=== PATIENT | female | born 2005 ===

== ENCOUNTER 2023-11-19 14:08 | Outpatient (CLI) | payer OTHER, SELFPAY | END 2023-11-19 14:09 | disposition home or self-care (01) | LOC: NFLDREF 14:10 | PROVIDERS: PCP Family Medicine; Visit Provider Registered Nurse | DX: R10.2 Pelvic and perineal pain (principal) | CPT/HCPCS: 87086 ==

== ENCOUNTER 2023-11-27 12:33 | Day surgery (SDC) | payer OTHER, SELFPAY ==
[2023-11-27] VITALS (19 sets, daily range): BP systolic 98–129; BP diastolic 65–84; PULSE 58–85; RESP 14–16; TEMP 36–37.1; O2SAT 97–100; BMI 21.4
--- NOTE | 2023-11-27 13:13 | CRLHL7_ITS ---
For Patients: As a result of the Century Cures Act, medical imaging exams and procedure reports are released immediately into your electronic medical record. You may view this report before your referring provider. If you have questions, please contact your health care provider. INDICATION: Pelvic and perineal pain. TECHNIQUE: Ultrasound pelvis transabdominal and transvaginal for better assessment or to better visualize the endometrium. Real-time sonographic images with spectral and color Doppler imaging of the ovaries were obtained. COMPARISON: None. FINDINGS: Uterus: 8.1 x 4.6 x 5.1 cm. Normal echotexture of the myometrium. No masses. Endometrium: Transvaginal imaging was performed to better evaluate the endometrium. Endometrial thickness measures 9.6 mm. No sign of endometrial mass or fluid. Right ovary 4 x 2.9 x 3.4. Left ovary 7.2 x 4.9 x 5.1 centimeter. There is a left ovarian lesion occupies almost all of the ovary with a fluid-fluid level. Normal arterial and venous blood flow is demonstrated in both ovaries. Cul-de-sac: Moderate simple pelvic free fluid. IMPRESSION: There is a left hemorrhagic cyst versus an endometrioma (O-RADS 2). Consider repeat ultrasound in 2-3 months. Moderate pelvic free fluid, which may be physiologic. Ruptured cyst is also in the differential, but free fluid visualized in the pelvis appears simple. Normal uterus. Dictated by Idania Simental MD @ 11/27/2023 2:51:07 PM (Electronically Signed)
[2023-11-27 13:31] LABS: Ur HCG Qualitative* Negative (Negative)
[2023-11-27 13:35] LABS: Appearance Urine Slightly Cloudy (Clear); Bilirubin Urine Negative (Negative); Blood Urine Negative (Negative); Color Urine Yellow (Yellow); Glucose Urine Negative (Negative); Ketones Urine Negative (Negative); Leukocyte Esterase Urine Negative (Negative); Nitrite Urine Negative (Negative); Protein Urine Negative (Negative); Specific Gravity Urine 1.025 (1.000-1.030); Urobilinogen Urine 0.2 (0.2-1.0)
[2023-11-27 13:49] LABS: Chloride* 105 mmol/L (96-114); Potassium* 4.3 mmol/L (3.6-5.1); Sodium* 136 mmol/L (135-149)
[2023-11-27] MEDS: 0.9 % SODIUM CHLORIDE 1000 ml 1,000 ML IV (13:50)
[2023-11-27 13:52] LABS: Basophils Percent Auto 0.2 % (0.0-3.0); Creatinine* 0.8 mg/dL (0.5-1.5); Eosinophils Percent Auto 0.5 % (0.0-7.0); Est. Creatinine Clearance* 130.12; Estimated Glomerular Filt Rate 108 ml/min; Hematocrit 41.4 % (33.0-51.0); Hemoglobin* 13.9 gm/dL (12.0-16.0); Immature Granulocytes Pct Auto 0.1 %; Lymphocytes Percent Auto 18.5 % (20-44); Mean Corpuscular HGB Conc 34 gm/dL (32-36); Mean Corpuscular Hemoglobin 29 pg (26-34); Mean Corpuscular Volume 87 fL (80-100); Monocytes Percent Auto 6.7 % (0.0-11.0); Platelet Count* 304 K/uL (140-440); RDW Coefficient of Variation % 12.8 % (11.5-15.5); Red Blood Count 4.75 m/uL (4.00-5.20); White Blood Count* 11.23 K/uL (4.50-11.00)
[2023-11-27 13:53] LABS: Anion Gap 6 mEq/L (7-15); Blood Urea Nitrogen* 25 mg/dL (5-24); Calcium* 9.6 mg/dL (8.4-10.6); Carbon Dioxide* 25 mmol/L (20-32); Glucose* 123 mg/dL (60-115)
[2023-11-27 13:54] LABS: Bacteria Urine Many; Mucus Urine Few; RBC Urine 0-2 (0-2); Squamous Epithelial Cell Urine Many (None-Few); WBC Urine 0-2 (0-5)
[2023-11-27 13:55] LABS: Slide Review Reflex No
[2023-11-27] MEDS: KETOROLAC 30 MG/ML inj IVP ×2 (14:00→18:48)
--- NOTE | 2023-11-27 14:21 | ED_ITS ---
HPI - Abdominal Pain General Date Seen: 11/27/23 Chief Complaint: Abdominal Pain Stated Complaint: Severe abdominal pain Time Seen by Provider: 11/27/23 12:49 Source: patient Mode of arrival: ambulatory Limitations: no limitations History of Present Illness HPI narrative: Patient is a 18-year-old female presents here with lower abdominal pain, she has had episodes of this 3 times today, where the lower abdominal pain will come on for 5-10 minutes, causing her to hyperventilate be the worst pain she has ever had. She also feels hot when this occurs, and then will improve in basically go way or have all really low level of pain in between this. She is not taking any medications for this, she had 1 episode yesterday, and then 2 weeks ago she had a couple episodes on a Friday. She was seen by OBGYN, they did a vaginal examination, and nothing came about that. But she came in today, she almost everted to the [facility]. Because the pain was so intense. Here she has 3/10 pain, but nothing nearly like she had. She describes as crampy or twisting, no vaginal discharge no dysuria frequency, history of UTIs in the past but no history of STDs. She is in a monogamous relationship. And her partner is here seems very loving. She does not take medications MD elicited complaint: abdominal pain Related Data Home Medications ?Medication ?Instructions ?Recorded ?Confirmed No Known Home Medications 11/13/21 11/27/23 Allergies Allergy/AdvReac Type Severity Reaction Status Date / Time No Known Drug Allergies Allergy Verified 11/27/23 12:48 Review of Systems Status of ROS Reports: 10 or more systems reviewed and unremarkable except as noted in History and below [facility] Medical History Fracture of fibula alone ?S82.409A - Unspecified fracture of shaft of unspecified fibula, initial encounter for closed fracture (ICD-10) Surgical History Closed fibular fracture ?S82.409A - Unspecified fracture of shaft of unspecified fibula, initial encounter for closed fracture (ICD-10) Family History Father High blood pressure Social History Narrative: Single, about to start her freshman year in college. Nonsmoker, no alcohol use, no recreational drug use. No concerns with safety or abuse. Will be playing volleyball in college. Smoking Status: Never smoker Exam Narrative: Exam Narrative: Patient is seen in room 5 she is in no apparent distress, thin, pupils equal round reactive to light there is no scleral icterus redness or TMs are normal oropharynx is normal neck is supple full range of motion, chest is good air entry bilaterally no wheezing crackles noted heart sounds are normal her abdomen shows tenderness in the lower abdominal region I would describe as moderate. There is no peritoneal signs bowel sounds are normal, no over upper abdominal pain no organomegaly, no CVA tenderness she moves all extremities independently and well, Const: Vital Signs, click to edit/add: Vital Signs - 24 hr 11/27/23 12:49 Temperature 97.2 F L Pulse Rate [Pulse Oximeter] 64 Respiratory Rate 16 Blood Pressure [Ri ght Upper Arm] 124/84 Pulse Oximetry 99 Oxygen Delivery Me thod Room Air Documenting provider has reviewed patient's vital signs: yes Course Reevaluation(s) Time of Reevaluation #1: 15:07 Reevaluation #1: I went back in to talk to the patient, she does have left-sided cyst, with good blood flow, hemorrhagic 7 x 5 x 4 cm, her history is very concerning for intermittent torsion. I contacted the on-call OBGYN, Dr.Dohn Israel agreed with me and will come and see the patient here in the emergency room. Patient will be kept NPO, fortunately she is feeling a lot better after the Toradol. Vital Signs Vital signs: Initial Vital Signs Temperature 97.2 F L 11/27/23 12:49 Temperature Source Temporal Artery Scan 11/27/23 12:49 Pulse Rate 64 11/27/23 12:49 Respiratory Rate 16 11/27/23 12:49 Blood Pressure 124/84 11/27/23 12:49 Blood Pressure Mean 97 11/27/23 12:49 Blood Pressure Position Sitting 11/27/23 12:49 Pulse Oximetry 99 11/27/23 12:49 Oxygen Delivery Method Room Air 11/27/23 12:49 Vital Signs Temperature 97.2 F L 11/27/23 12:49 Pulse Rate 64 11/27/23 12:49 Respiratory Rate 16 11/27/23 12:49 Blood Pressure 124/84 11/27/23 12:49 Pulse Oximetry 99 11/27/23 12:49 Oxygen Delivery Method Room Air 11/27/23 12:49 Temperature 97.2 F L 11/27/23 12:49 Pulse Rate 64 11/27/23 12:49 Respiratory Rate 16 11/27/23 12:49 Blood Pressure 124/84 11/27/23 12:49 Pulse Oximetry 99 11/27/23 12:49 Oxygen Delivery Method Room Air 11/27/23 12:49 Medications Administered Medications: Discontinued Medications Generic Name Dose Route Start Last Admin Trade Name Freq PRN Reason Stop Dose Admin Sodium Chloride 1,000 mls @ 1,000 mls/hr 11/27/23 13:15 11/27/23 14:35 0.9 % Sodium Chloride 1000 Ml IV 11/27/23 14:14 Infused .Q1H EDGARD Infusion Ketorolac Tromethamine 30 mg 11/27/23 13:13 11/27/23 14:00 Ketorolac 30 Mg/Ml Inj IVP 11/27/23 13:14 30 mg ONCE ONE Administration MDM - Abdominal Pain MDM Narrative Medical decision making narrative: During the evaluation of this patient I considered multiple differential diagnosis including life-threatening differentials which are appendicitis, aortic aneurysm, mesenteric ischemia, bowel perforation, ectopic , volvulus and bowel obstruction, other differential diagnosis include but are not limited to inflammatory bowel disease, cholecystitis, pancreatitis, hepatitis, gastritis, GERD, diverticulitis, peptic ulcer disease, pyelonephritis/UTI, renal colic/stone, pelvic inflammatory disease, cervicitis, endometritis, intrauterine , dysfunctional uterine bleeding, ovarian cyst/torsion, spontaneous as well as other etiologies Medical Records Attestation: I reviewed the patient's medical records. Lab Data Attestation: I reviewed the patient's lab results. Lab results narrative: Lab results show no evidence of an acute problems, Labs: Lab Results 11/27/23 11/27/23 Range/Units 13:15 13:27 WBC 11.23 H (4.50-11.00) K/uL RBC 4.75 (4.00-5.20) m/uL Hgb 13.9 (12.0-16.0) gm/dL Hct 41.4 (33.0-51.0) % MCV 87 (80-100) fL MCH 29 (26-34) pg MCHC 34 (32-36) gm/dL RDW Coeff of Aj 12.8 (11.5-15.5) % Plt Count 304 (140-440) K/uL Neut % (Auto) 74.0 H (42.0-72.0) % Lymph % (Auto) 18.5 L (20-44) % Chaves % (Auto) 6.7 (0.0-11.0) % Eos % (Auto) 0.5 (0.0-7.0) % Baso % (Auto) 0.2 (0.0-3.0) % Neut # (Auto) 8.30 H (1.7-7.0) K/uL Lymph # (Auto) 2.10 (0.90-2.90) K/uL Chaves # (Auto) 0.80 (0.00-0.90) K/UL Eos # (Auto) 0.10 (0.00-0.50) K/uL Baso # (Auto) 0.00 (0.00-0.30) K/uL Abs Immat Gran (auto) 0.00 (0.00-0.30) K/uL Imm/Tot Granulo (auto) 0.1 % Sodium 136 (135-149) mmol/L Potassium 4.3 (3.6-5.1) mmol/L Chloride 105 (96-114) mmol/L Carbon Dioxide 25 (20-32) mmol/L Anion Gap 6 L (7-15) mEq/L BUN 25 H (5-24) mg/dL Creatinine 0.8 (0.5-1.5) mg/dL Estimated Creat Clear 130.12 Estimated GFR 108 ml/min Glucose 123 H (60-115) mg/dL Calcium 9.6 (8.4-10.6) mg/dL C-Reactive Protein < 0.5 L (0.5-1.0) mg/dL Urine Color Yellow (Yellow) Urine Appearance Slightly Cloudy A (Clear) Urine pH 6.0 (5.0-8.5) Ur Specific Elgin 1.025 (1.000-1.030) Urine Protein Negative (Negative) Urine Glucose (UA) Negative (Negative) Urine Ketones Negative (Negative) Urine Blood Negative (Negative) Urine Nitrite Negative (Negative) Urine Bilirubin Negative (Negative) Urine Urobilinogen 0.2 (0.2-1.0) Ur Leukocyte Esterase Negative (Negative) Urine RBC 0-2 (0-2) Urine WBC 0-2 (0-5) Ur Squamous Epith Cells Many A (None-Few) Urine Bacteria Many A (None) Urine Mucus Few A (None) Urine HCG, Qual Negative (Negative) C.trachomatis Ampl DNA NOT DETECTED (No Detected) N.gonorrhoeae Ampl DNA NOT DETECTED (No Detected) Imaging Data Pelvic ultrasound: Attestation: I have reviewed the pertinent imaging results. Radiologist's impression: Patient: RODY BATISTA Facility:?[facility] Patient ID:?[id number] Site Patient ID:?[id number]. Site :?[id number] Study:?US-Pelvis transvaginal-11/27/2023 2:11:48 PM Ordering Physician:Jose Knihgt Final Report: INDICATION: Pelvic and perineal pain. TECHNIQUE: Ultrasound pelvis transabdominal and transvaginal for better assessment or to better visualize the endometrium. Real-time sonographic images with spectral and color Doppler imaging of the ovaries were obtained. COMPARISON: None. FINDINGS: Uterus: 8.1 x 4.6 x 5.1 cm. Normal echotexture of the myometrium. No masses. Endometrium: Transvaginal imaging was performed to better evaluate the endometrium. Endometrial thickness measures 9.6 mm. No sign of endometrial mass or fluid. Right ovary 4 x 2.9 x 3.4. Left ovary 7.2 x 4.9 x 5.1 centimeter. There is a left ovarian lesion occupies almost all of the ovary with a fluid-fluid level. Normal arterial and venous blood flow is demonstrated in both ovaries. Cul-de-sac: Moderate simple pelvic free fluid. IMPRESSION: There is a left hemorrhagic cyst versus an endometrioma (O-RADS 2). Consider repeat ultrasound in 2-3 months. Moderate pelvic free fluid, which may be physiologic. Ruptured cyst is also in the differential, but free fluid visualized in the pelvis appears simple. Normal uterus. Dictated by Idania Simental MD @ 11/27/2023 2:51:07 PM (Electronic Signature) Discharge Plan Discharge Clinical Impression: Ovarian torsion, Mass of left ovary Patient Disposition: XFER to OR Condition: Stable Prescriptions: No Action No Known Home Medications Follow Up/Referrals: Judy Aguilar MD [Primary Care Provider] -
[2023-11-27 14:28] LABS: C Reactive Protein* < 0.5 mg/dL (0.5-1.0)
[2023-11-27 15:09] LABS: Chlamydia DNA Amplified* NOT DETECTED (No Detected); GC DNA Amplified* NOT DETECTED (No Detected)
--- NOTE | 2023-11-27 15:35 | PM.GYNCN1 ---
ARTIST'S REPRESENTATIVE - CN: HPI Data of Consult Time Seen by Provider: 15:35 Date Seen: 11/27/23 Patient: [facility] Patient Requesting Physician: Placido Farnsworth MD Primary Care Provider: Judy Aguilar MD Consult Narrative Reason for consult: abdominal pain Narrative: Juani Curtis is a 18 year old female who presented to the emergency room this morning after having 3 episodes of very severe left lower quadrant pain each episode lasting 15-45 minutes. She states the pain was so severe that she felt like her body was ?on fire? and was associated with significant nausea. No episode of emesis. She last ate at 10:00 a.m.. She had an ultrasound performed today which showed a 7.0 x 4.9 x 5.1 cm left adnexal cyst possibly hemorrhagic cyst versus endometrioma. I have significant concern for intermittent torsion of her ovary and recommended emergent laparoscopic ovarian cystectomy possible oophorectomy. Please see Separate note for complete details. cc:: CC: [facility] Medical History Fracture of fibula alone ?S82.409A - Unspecified fracture of shaft of unspecified fibula, initial encounter for closed fracture (ICD-10) Surgical History Closed fibular fracture ?S82.409A - Unspecified fracture of shaft of unspecified fibula, initial encounter for closed fracture (ICD-10) Family History Father High blood pressure Social History Narrative: Single, about to start her freshman year in college. Nonsmoker, no alcohol use, no recreational drug use. No concerns with safety or abuse. Will be playing volleyball in college. Smoking Status: Never smoker Meds Home Medications and Allergies Home Medications ?Medication ?Instructions ?Recorded ?Confirmed ?Type No Known Home Medications 11/13/21 11/27/23 History Allergies Allergy/AdvReac Type Severity Reaction Status Date / Time No Known Drug Allergies Allergy Verified 11/27/23 12:48 ARTIST'S REPRESENTATIVE - Exam Physical Exam: Vital signs: Temp Pulse Resp BP Pulse Ox O2 Del Method 97.2 F L 64 16 124/84 99 Room Air 11/27/23 12:49 11/27/23 12:49 11/27/23 12:49 11/27/23 12:49 11/27/23 12:49 11/27/23 12:49 Narrative: General: Pleasant, thin, woman in no acute distress. Vital signs: Included in her electronic medical record. Psychiatric: Alert and oriented x3 with normal speech pattern, eye contact and affect. Abdomen: Left lower quadrant tenderness to deep palpation with rebound no guarding. Normal bowel sounds throughout. No masses palpable Genitourinary: Deferred to the operating room Extremities: No pain, edema, cyanosis or clubbing. ARTIST'S REPRESENTATIVE - Results Labs Labs: Short CBC 11/27/23 Range/Units 13:27 WBC 11.23 H (4.50-11.00) K/uL Hgb 13.9 (12.0-16.0) gm/dL Hct 41.4 (33.0-51.0) % Plt Count 304 (140-440) K/uL BMP 11/27/23 13:27 Sodium 136 Potassium 4.3 Chloride 105 Carbon Dioxide 25 BUN 25 H Creatinine 0.8 Glucose 123 H Calcium 9.6 Urine 11/27/23 Range/Units 13:15 Urine Color Yellow (Yellow) Urine Appearance Slightly Cloudy A (Clear) Urine pH 6.0 (5.0-8.5) Ur Specific Orange 1.025 (1.000-1.030) Urine Protein Negative (Negative) Urine Glucose (UA) Negative (Negative) Assessment and Plan Assessment and plan (1) Mass of left ovary: Status: Acute (2) Ovarian torsion: Status: Acute Assessment and Plan: 1. Due to intermittent pain I a.m. concerned about intermittent ovarian torsion in this patient with an ovarian cyst measuring 5 x 7 cm. 2. Consent form was reviewed and signed for laparoscopic left ovarian cystectomy, possible left oophorectomy. All the patient's questions were answered. 3. The patient last ate at 10:00 a.m.
[2023-11-27] MEDS: BUPIVACAINE 0.5% 30 ML INJECTION (16:30)
--- NOTE | 2023-11-27 17:35 | P.PCN_ITS ---
Procedure Note Time Seen by Provider: 17:35 Date Seen: 11/27/23 Date of procedure: 11/27/23 Will [facility] bill your pro fee for this procedure?: Yes Procedure: Preoperative diagnosis: 18-year-old nulligravid woman with severe left lower quadrant pain and 7 x 5 cm ovarian cyst Postoperative diagnosis: Same. Procedure: Laparoscopic left ovarian cystectomy Anesthesia: General endotracheal Surgeon: Rachel Vila MD Automatic Bandsaw Tender: Not applicable EBL: 50 mL Urine output: 100 mL clear urine IVF: 900 ml Specimen: Left ovarian cyst wall to pathology. Findings: On exam under anesthesia: The uterus was retroverted, less than 8 week size, mobile, without masses or nodularity palpable. Adnexa were without mass or fullness bilaterally. The uterus sounded to 8 cm. On laparoscopy: The uterus, right tube and ovary were normal in appearance. The left ovary had a 5 x 7 cm endometrioma with endometriosis in the cul-de-sac the area where the cyst had been adherent to the pelvic sidewall. The left fallopian tube had clubbed fimbria and appeared scarred. Normal appendix, liver and gallbladder. Procedure: Juani was taken to the operating room where general anesthetic was found to be adequate. She was placed in the dorsal lithotomy position and an exam under anesthesia was performed with findings stated above. She was then prepped and draped in a normal sterile manner. A Iglesias catheter was then placed. A bivalve speculum was then placed in the vaginal canal to visualize the cervix. The anterior lip of the cervix was grasped with an a long Allis clamp. The cervix was dilated to Hegar 6. Uterus was sounded to 8 cm. A [employer] uterine manipulator was then placed. Attention was then turned to performing the laparoscopic portion of the procedure. All incisions were injected with 0.5% Marcaine prior to incision. A vertical 5 mm infraumbilical, incision, was made and a 5 mm trocar placed under direct visualization with the laparoscope. The abdomen was then insufflated with carbon dioxide gas to a pressure of 15 mm of mercury. To bilateral lower quadrant trocars were then placed under direct visualization. Both were placed approximately 3-4 finger breaths medial to the ischial crests. The right trocar was 5 mm the left trocar was 11 mm. A diagnostic laparoscopy was then performed with findings stated above. The left fallopian tube was grasped with a sliding grasper to tent the ovary up. Incision was made over the cyst and the cyst was cored out of the underlying ovary. The ovary was essentially splayed in half as the cyst was removed. The cyst was then cauterized using bipolar cautery with excellent hemostasis noted. Surgicel was then placed within the ovary and the 2 sides of the ovary wrapped around the Surgicel. Excellent hemostasis was noted. A Cornell-Ron fascial closure device was used to reapproximate the fascia in the left lower quadrant trocar site. All the trocars were then removed under direct visualization. The CO2 gas was allowed to escape the infraumbilical port prior to its removal. All incisions were reapproximated using 4-0 Monocryl in a running subcuticular manner. Exofin skin adhesive was then applied and adhesive dressings applied over each incision. The uterine manipulator and Iglesias catheter were removed. The patient tolerated this procedure well. Sponge, lap and instrument counts were correct x2 at the end of the procedure and the patient was taken to the recovery area in stable condition.
--- NOTE | 2023-11-27 17:40 | W.ANESCHARGE ---
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
[2023-11-27] MEDS: HYDROCODONE-ACETAMIN 5-325 MG 1 TAB PO (20:22)
[2023-11-27] MEDS: ONDANSETRON 2 MG/ML inj 4 MG IVP (21:31)
[2023-11-28 00:04] VITALS: BP 119/67; PULSE 75; RESP 18; TEMP 37.1; O2SAT 98
--- NOTE | 2023-11-28 04:43 | PC.NURSE ---
Patient tolerated crackers and juice. Given PRN Jean for pain rated ?5/10. Ambulated with gait belt and assist of one. Reported dizziness and nausea when first attempting to ambulate to bathroom. Patient was given PRN Zofran at that time. A few small clots approximately 1cm in size noted in hat after?urinating. Patient?s family brought in outside food and patient tolerated well. Patient attempted to walk again however she became a little nauseated after walking to her door. She reported feeling better when back in bed. Before discharging there was a scant amount of blood noted on pad. Rated pain 3/10 with rest and 7/10 with activity.?Patient declined to take PRN Jean before leaving for concern this caused her earlier nausea. Patient discharged at 0040. She was accompanied by her significant other. RN wheeled patient to ER doors.?
== END 2023-11-28 00:40 | disposition home or self-care (01) ==
LOC: ED 18:44 → SS 18:47 → MEDSURG 18:49
PROVIDERS: Emergency Provider Family Medicine; PCP Family Medicine; Visit Provider Obstetrics & Gynecology
PROC: (CPT 58662; principal; 2023-11-27 15:30)
DX: N83.292 Other ovarian cyst, left side (principal); R10.32 Left lower quadrant pain; N83.512 Torsion of left ovary and ovarian pedicle
CPT/HCPCS: 58662; 00840; 36415; 76830; 80048; 81001; 81025; 85025; 86140; 87086; 87491; 87591; 88307; 99140; 99284; 99285; A9270; J0330; J0665; J1100; J1170; J1885; J2250; J2405; J2704; J3010; J3490; J7030

== ENCOUNTER 2024-05-07 12:01 | Outpatient (CLI) | payer OTHER, SELFPAY | END 2024-05-07 12:02 | disposition home or self-care (01) | LOC: NFLDREF 12:03 | PROVIDERS: PCP Family Medicine; Visit Provider Obstetrics & Gynecology | DX: R30.0 Dysuria (principal); N89.8 Other specified noninflammatory disorders of vagina | CPT/HCPCS: 87086 ==

== ENCOUNTER 2024-05-07 14:26 | Outpatient (CLI) | payer OTHER, SELFPAY ==
--- NOTE | 2024-05-07 14:45 | CRLHL7_ITS ---
For Patients: As a result of the Century Cures Act, medical imaging exams and procedure reports are released immediately into your electronic medical record. You may view this report before your referring provider. If you have questions, please contact your health care provider. Indication: pelvic pain Technique: Real-time sonographic images of the pelvis were obtained transvaginally utilizing grayscale, color, and Doppler imaging. Comparison: Report 11/27/2023. Findings: Uterus: Appearance: Normal. Position: Retroflexed. Size: 7.7 x 4.2 x 5.3 cm. Endometrial stripe: 12 mm. Right ovary: Size: 4.2 x 3.2 x 3.4 cm. Appearance: 2.2 x 1.7 x 1.2 centimeter hypoechoic lesion. 2.4 x 2.0 x 2.2 centimeter simple cyst. Preserved blood flow. Left ovary: Size: 5.3 x 2.4 x 3.7 cm. Appearance: 1.6 x 1.3 x 1.0 centimeter echogenic lesion. 1.5 x 1.9 x 1.6 centimeter heterogeneously hypoechoic cystic lesion. Preserved blood flow. Free fluid: Trace free fluid in the posterior cul-de-sac. Impression: 1. 2.2 x 1.7 x 1.2 centimeter hypoechoic right ovarian lesion. 1.5 x 1.9 x 1.6 centimeter heterogeneously hypoechoic left ovarian cystic lesion. Nonspecific cystic ovarian lesions suggestive of but not classic for hemorrhagic cyst, endometrioma or dermoid should be evaluated with repeat ultrasound in 6-12 weeks. If unchanged, hemorrhagic cyst would be unlikely, and continued follow-up with ultrasound or pelvic MRI would be recommended. Surgical consultation could also be considered for lesions that remain uncharacterized, particularly in postmenopausal patients. Adapted from Consensus Recommendations, Radiol:2010;256:943-955. 2. 1.6 x 1.3 x 1.0 centimeter echogenic left ovarian lesion; this is favored to represent a dermoid cyst. Suspected ovarian dermoids should be followed with annual ultrasound to ensure stability, unless surgically removed. Adapted from Consensus Recommendations, Radiol:2010;256:[id number]. Dictated by Robbie Warren MD @ 05/08/2024 10:52:34 AM (Electronically Signed)
== END 2024-05-07 14:27 | disposition home or self-care (01) ==
LOC: US 14:26
PROVIDERS: PCP Family Medicine; Visit Provider Obstetrics & Gynecology
DX: R10.2 Pelvic and perineal pain (principal); D27.1 Benign neoplasm of left ovary
CPT/HCPCS: 76830; 93976

== ENCOUNTER 2024-07-23 09:17 | Outpatient (CLI) | payer OTHER, SELFPAY ==
--- NOTE | 2024-07-23 09:15 | CRLHL7_ITS ---
For Patients: As a result of the Century Cures Act, medical imaging exams and procedure reports are released immediately into your electronic medical record. You may view this report before your referring provider. If you have questions, please contact your health care provider. CLINICAL HISTORY: Follow-up left ovarian cyst Comparison ultrasound 05/07/2024 TECHNIQUE: Real time, collado scale images were acquired of the pelvis using a transabdominal and transvaginal approach. Color Doppler analysis was performed of the ovaries. FINDINGS: The uterus measures 8.4 x 4.7 x 6.1 centimeters endometrium measures 1.1 centimeters. Right ovary: 5.8 x 4.1 x 4.5 centimeters. Hypoechoic lesion in the right ovary measuring 1.9 x 1.5 x 1.2 centimeters probably not significantly changed given differences in measurement technique. Several cysts are seen in the right ovary as well 4.6 x 2.4 x 3.2 centimeters. Left ovary: Echogenic lesion measuring 1.3 x 0.9 x 0.9 centimeters persists probably not significantly changed given differences in measurement technique. Additional complex lesion with possible fluid density level measuring 1.6 x 1.5 x 1.5 centimeters. Complex cystic lesion in left ovary measuring 1.1 x 0.7 x 1.1 centimeters could be related to previous complex cyst that now has decreased in size. Small amount of fluid in the pelvis blood flow to both ovaries IMPRESSION: 1. Hypoechoic lesion in the right ovary probably not significantly changed. 2. In the left hyperechoic lesion ovary probably not significantly changed an additional complex lesion with fluid density level. An additional complex cystic lesion in left ovary that is decreased in size from the previous study. Nonspecific complex ovarian lesions bilaterally presence of an echogenic component on the left could be related to presence of a dermoid. Gynecology consultation recommended. Dictated by Joleen Guy MD @ 07/23/2024 3:01:06 PM (Electronically Signed)
== END 2024-07-23 09:18 | disposition home or self-care (01) ==
LOC: US 09:17
PROVIDERS: PCP Family Medicine; Visit Provider Obstetrics & Gynecology
DX: N83.202 Unspecified ovarian cyst, left side (principal); N83.201 Unspecified ovarian cyst, right side
CPT/HCPCS: 76830

== ENCOUNTER 2024-10-05 17:14 | Outpatient (CLI) | payer OTHER, SELFPAY ==
--- OUTSIDE RECORDS SUMMARY | 2024-10-05 17:17 | XMS_ITS | Clinical Summary ---
Author Organization [facility] Address [address] [place] [address] Care Team Providers Care Doll Maker Name Role Phone [facility] Primary Care Pr ovider Allergies No known active allergies Medications fluconazole (DIFLUCAN) 150 mg tabletIndication s:Vaginal candidiasis Take 1 tablet every 3 days for total of 3 doses. 3 Tablet 04/11/2023 Active Active Problems Problem Noted Date Diagnosed Date Closed fracture of left distal fibula 05/04/2021 Overview (09/14/2021): Added automatically from request for surgery [id number] Resolved Problems Problem Noted Date Diagnosed Date Resolved Date No active medical problems 08/23/2011 0 12/10/2022 Encounters Date Type Department Care Team Description 07/23/2024 Orders Only [facility] Scanner 1 scan: (1-Ord) [facility], PELVIC TRANSVAGINAL, 07/23/2024 from Last 3 Months Immunizations Immunization Administration Dates Next Due DTaP 04/11/2008,06/01/2004 [id number] (Pediarix) 01/08/2004,0509/2003,2003,05/07 HIB PRP-OMP (PedvaxHIB) 06/01/2004,03/14/2004, HPV 9 (Gardasil 9) 11/18/2018 Hepatitis A (Peds) 11/20/2015,04/11/2008 Inactivated Polio Vaccine 04/11/2008 Influenza A (H1N1), Live Intranasal 04/20/2009 Influenza, IIV3 (Age 6-35 mos) 03/02/2004 Influenza, IIV3 (Age >=3 years) 04/11/2008,02/16 Influenza,LAIV4 Live Intrana enzo (Flumist) 02/16/2009 MENINGOCOCCAL VACCINE 2 VIAL 2MO-55YO (MENVEO) 11/20/2015 MMR 04/11/2008,03/02/2004 Pneumococcal conj 7-Valent (Prevnar 7) 0 06/01/2004,01/04/2004,2003,05/04 Tdap 11/20/2015 Varicella Vaccine 04/11/2008,03/02/2004 Family History Medical History Relation Name Comments Other Mother gestational mary betes Relation Name Status Comments Father Alive Mother Alive Social History Tobacco Use Types Packs/Day Years Used Date Smoking Tobacco: Never Smokeless Tobacco: Never Tobacco Cessation:Counseling Given: Yes Comments:no passive smoke exposure Alcohol Use Standard Drinks/Week Comments Never 0 (1 standard drink = 0.6 oz pur e alcohol) PHQ-2 Answer Date Recorded PHQ-2 TOTAL SCORE 2 04/10/2023 Social Connections Answer Date Recorded Do you often feel lonely or isolated from those around you? 0 04/10/2023 Financial Resource Strain Answer Date R ecorded Difficulty of Paying Living Expenses 3 04/10/2023 Difficulty of Paying Living Expenses Not on file 04/10/2023 Food Insecurity Answer Date Recorded Do you worry your food will run out before you are able to buy more? 1 04/10/2023 Transportation Needs Answer Date Record ed Does lack of transportation keep you from medica l appointments? 1 04/10/2023 Does lack of transportation keep you from work, meetings or getting things that you need? 1 04/10/2023 Housing Stability Answer Date Recorded What is your housing situation today? 1 04/10/2023 Utilities Answer Date Recorded Do you have trouble paying f or utilities (for example, heat, electricity, water, phone)? 1 04/10/2023 Comments No Sex and Gender Information Value Date Recorded Sex Assigned at Not on file Legal Sex Female 5:51 AM DISCHARGE PLANNER Gender Identity Not on file Sexual Orientation Not on file Obstetrics History Para Term AB IAB SAB Ectopic Multiple Livin g Live Births 0 0 0 0 0 0 0 0 0 0 0 Last Filed Vital Signs Vital Sign Reading Time Taken Comments Blood Pressure 104/66 04/10/2023 8:24 AM DISCHARGE PLANNER Pulse 76 04/10/2023 8:24 AM DISCHARGE PLANNER Temperature 36.7 C (98.1 F) 12/10/2022 1:06 PM CDT Respiratory Rate 12 03/08/2022 4:13 PM DISCHARGE PLANNER Oxygen Saturation 98% 04/10/2023 8:24 AM DISCHARGE PLANNER Inhaled Oxygen Concentration - - Weight 72.6 kg (160 lb) 04/10/2023 8:24 AM DISCHARGE PLANNER Height 183 cm (6' 0.05) 04/10/2023 8:24 AM DISCHARGE PLANNER Body Mass Index 21.67 04/10/2023 8:24 AM DISCHARGE PLANNER Plan of Treatment Health Maintenance Due Date Last Done Comments HIV for age 15-65 2018 HPV series for age 9-26 (2 - 3-dose series) 12/16/2018 11/18/2018 COVID-19 vaccine series ( season) 2023 Pap test for age 21-65 2024 BMI (ht and wt on same day) for age 18+ 04/10/2024 04/10/2023, 03/08/2022, 09/14/2021 Chlamydia for age 16-24 04/10/2024 04/10/2023 Depression screening for age 12+ 04/11/2024 04/11/2023, 04/10/2023, 09/17/2021, Additional history exists Influenza Vaccine (Season Ended) 2024 02/16/2009, 04/11/2008, 02/16/2007, Additional history exists Tetanus booster 11/19/2025 11/20/2015 Hepatitis B series for 19+ Completed 01/07, 2003, 2003, Additional history exists Pneumococcal series for age 6-49 Aged Out 06/01/2004, 01/04/2004, 2003, Additional history exists No longer eligible based on patient's age to complete this topic Meningococcal series for age 11-21 Aged Out 11/20/2015 No longer eligible based on patient's age to complete this topic Tdap Completed 11/20/2015 Hepatitis C screening for age 18-79 Completed 09/14/2021 Procedures Procedure Name Priority Date/Time Associated Diagnosis Comments SCAN-ULTRASOUND REPORT 07/23/2024 12:00 AM CDT GC CHLAMYDIA TRACH PROBE Routine 04/10/2023 9:36 AM DISCHARGE PLANNER Dyspareunia in female ANTI HCV Routine 09/14/2021 11:34 AM CDT Need for hepatitis C screening test from Last 3 Months or Most Recently Relevant to Health Maintenance Results * SCAN-ULTRASOUND REPORT (07/23/2024 12:00 AM CDT) Anatomical Region Laterality Modality Other us Scanner OTHER Final Result * GC CHLAMYDIA TRACH PROBE (04/10/2023 9:36 AM DISCHARGE PLANNER) CHLAMYDIA PROBE Negative 7:32 PM DISCHARGE PLANNER [facility] N GONORRHOEAE PROBE Negative 04/10/2023 7:32 PM DISCHARGE PLANNER [facility] Other VAGINAL SWAB / Unknown Non-Blood / Unknown 04/10/2023 9:36 AM DISCHARGE PLANNER 04/10/2023 9:37 AM DISCHARGE PLANNER us Cecy BOYLE MICROBIOLOGY Final Resu lt [facility] [address] [place] [address], * ANTI HCV (09/14/2021 11:34 AM CDT) HEPATITIS C ANTIBODY Non-React ryan Non-React ryan 09/15/2021 10:44 AM CDT [facility] Comment:Antibodies to HCV no t detected; does not exclude the possibility of exposure to HCV. Blood BLOOD SPECIMEN / Unknown Venipuncture / Unknown 09/14/2021 11:34 AM CDT 09/14/2021 11:35 AM CDT us Mario Kern DO SEND OUTS Final Result [facility] [address] [place] [address], [place] from Last 3 Months or Most Recently Relevant to Health Maintenance Insurance [place] [id number] [address] [place] [id number] [place] [address] Care Teams Doll Maker Relationship Specialty Start Date End Date Clinic, [facility] [address] [place] [address] PCP - General 05/10/24
--- OUTSIDE RECORDS SUMMARY | 2024-10-05 17:17 | XMS_ITS | Clinical Summary ---
Author Organization [facility] Address [address], [place] [address] Care Team Providers Care Chronic Disease Epidemiologist Name Role Phone Clinician, Not Found MD Primary Care Provider Un available Source Comments You are receiving this document as you are listed as the primary care provider,follow-up provider, or the patient has been referred to you for consultation.This is in compliance with the Medicare and[facility] Cent[facility] EHR Incentive Program,which states Providers who transition their patient to another setting of careor provider of care or refers their patient to another provider of care shouldprovide summary care record for each transition of care or referral. [facility] Allergies No known active allergies Medications HYDROcodone-alberto taminophen (NORCO) 5-325 MG tabletIndicatio ns:Pain Take 1-2 Tablets by mouth every 6 hours as needed for Pain. Indications: Pain 10 Tablet 04/03/2022 Active Active Problems Problem Noted Date Diagnosed Date Mechanical complication due to implant Overview (02/05/2022): Added automatically from request for surgery [id number] Closed fracture of left distal fibula 05/04/2021 Overview (05/04/2021): Added automatically from request for surgery [id number] Social History Tobacco Use Types Packs/Day Years Used Date Smoking Tobacco: Never Smokeless Tobacco: Never Tobacco Cessation:Counseling Given: Not Answered Alcohol Use Standard Drinks/Week Comments Not Currently 0 (1 standard drink = 0.6 oz pur e alcohol) Comments No Sex and Gender Information Value Date Recorded Sex Assigned at Not on file Legal Sex Female 5:45 AM CDT Gender Identity Not on file Sexual Orientation Not on file Last Filed Vital Signs Vital Sign Reading Time Taken Comments Blood Pressure 112/58 04/03/2022 12:47 PM CLOTHES DRIER ASSEMBLER Pulse 82 04/03/2022 12:25 PM CLOTHES DRIER ASSEMBLER Temperature 36.6 C (97.9 F) 04/03/2022 11:43 AM CLOTHES DRIER ASSEMBLER Respiratory Rate 16 04/03/2022 12:47 PM CLOTHES DRIER ASSEMBLER Oxygen Saturation 99% 04/03/2022 12:47 PM CLOTHES DRIER ASSEMBLER Inhaled Oxygen Concentration - - Weight 77.1 kg (170 lb) 04/03/2022 8:37 AM CLOTHES DRIER ASSEMBLER Height 182.9 cm (6') 04/03/2022 8:37 AM CLOTHES DRIER ASSEMBLER Body Mass Index 23.06 04/03/2022 8:37 AM CLOTHES DRIER ASSEMBLER Plan of Treatment Health Maintenance Due Date Last Done Comments Cervical Cancer Screening Due 2003 Chlamydia 2003 Hep C Screening (Preventive Services) 2003 MenB Immunization Discussion 2003 HPV Vaccine (2 - 3-dose series) 12/16/2018 11/18/2018 HIV Screening (Preventive Services) 2019 Adult Preventive Visit 2021 HepB Vaccine (1) 2022 COVID-19 Vaccine ( season) 2023 Influenza Vaccine (Season Ended) 2024 02/16/2009, 02/16/2009, 04/11/2008, Additional history exists DTaP/Tdap/Td Vaccine (7 - Tdap) 11/19/2025 11/20/2015, 04/11/2008, 06/01/2004, Additional history exists Zoster/Shingles Vaccine (1 of 2) 2053 Hib Vaccine Completed 06/01/2004, 04/2003, 2003 Pneumococcal Vaccine Aged Out 06/01/2004, 01/04/2004, 2003, Additional history exists No longer eligible based on patient's age to complete this topic IPV (Polio) Vaccine Completed 04/11/2008, 01/08/2004, 2003, Additional history exists HepA Vaccine Completed 11/20/2015, 04/11/2008 MCV4 Vaccine Aged Out 11/20/2015 No longer eligi ble based on patient's age to complete this topic Medical Devices Implanted Type Area Professor Of Rhetoric Device Identifier Shelf Expiration Date Model / Serial / Lot Scr Alexander 4.0x50 Lng-Thrd - [id number] Implanted:Qty: 1 on 05/09/2021 by Bienvenido Sawant DPM at [facility] DEVICE Left: ANKLE [employer] S[employer] - Trauma 207.750 / 000 / 000 Scr Alexander 4.0x40 Lng-Thrd - [id number] Implanted:Qty: 1 on 05/09/2021 by Bienvenido Sawant DPM at [facility] DEVICE Left: [employer] - Trauma 207.740 / 000 / 000 Insurance [address] [place] [id number] FULLY INSURED FULLY INSURED FULLY INSURED Advance Directives * Full Code (Latest Code Status on File) Date Activated Date Inactivated Comments 04/03/2022 8:37 AM 04/03/2022 3:16 PM * Full Code Date Activated Date Inactivated Comments 05/09/2021 8:17 AM 05/09/2021 1:33 PM Care Teams Chronic Disease Epidemiologist Relationship Specialty Start Date End Date Clinician, Not Found, [place] [address] PCP - General 11/02/21
--- NOTE | 2024-10-05 17:30 | CRLHL7_ITS ---
For Patients: As a result of the Century Cures Act, medical imaging exams and procedure reports are released immediately into your electronic medical record. You may view this report before your referring provider. If you have questions, please contact your health care provider. INDICATION: History of left ovarian mucinous cystadenoma COMPARISON: 07/23/2024 TECHNIQUE: 2D collado-scale and color Doppler images were acquired of the pelvis using a transabdominal and transvaginal approach. Transvaginal imaging performed to better visualize the endometrial stripe and ovaries. FINDINGS: Sonographic images demonstrate a normal size and smooth outer contour of the uterus. Uterus measures 8.6 cm in length by 4.5 cm in AP diameter by 5.8 cm in transverse dimension. The myometrium has a normal uniform echotexture. The endometrial lining appears normal and measures 12 mm in composite thickness. The right ovary measures 6.5 x 4.1 x 4.1 cm in size and the left ovary measures 4.8 x 2.3 x 3.0 cm. The ovaries demonstrate normal arterial and venous blood flow on color Doppler analysis. There are no suspicious fluid collections within the cul-de-sac. Complex right ovarian cyst with a fluid fluid level measures 3.4 x 3.5 x 3.3 cm. Mild pelvic free fluid. IMPRESSION: Hemorrhagic right ovarian cyst measures 3.5 cm. Normal left ovary. Dictated by Vinny Us MD @ 10/06/2024 9:46:27 AM (Electronically Signed)
--- OUTSIDE RECORDS SUMMARY | 2024-10-06 01:03 | XMS_ITS | Clinical Summary ---
Author Organization [facility] Address [address] [address] Care Team Providers Care Banquet Server On Call Name Role Phone Clinician, Not Found MD Primary Care Provider Un available Source Comments You are receiving this document as you are listed as the primary care provider,follow-up provider, or the patient has been referred to you for consultation.This is in compliance with the Medicare and[facility] Hospital[facility] EHR Incentive Program,which states Providers who transition their patient to another setting of careor provider of care or refers their patient to another provider of care shouldprovide summary care record for each transition of care or referral. [facility] Allergies No known active allergies Medications HYDROcodone-alberto taminophen (NORCO) 5-325 MG tabletIndicatio ns:Pain Take 1-2 Tablets by mouth every 6 hours as needed for Pain. Indications: Pain 10 Tablet 04/03/2022 Active Active Problems Problem Noted Date Diagnosed Date Mechanical complication due to implant Overview (02/05/2022): Added automatically from request for surgery [id number] Closed fracture of left distal fibula 05/04/2021 Overview (05/04/2021): Added automatically from request for surgery [id number] Social History Tobacco Use Types Packs/Day Years [...] Comments Blood Pressure 112/58 04/03/2022 12:47 PM SPRAY GUN REPAIRER Pulse 82 04/03/2022 12:25 PM SPRAY GUN REPAIRER Temperature 36.6 C (97.9 F) 04/03/2022 11:43 AM SPRAY GUN REPAIRER Respiratory Rate 16 04/03/2022 12:47 PM SPRAY GUN REPAIRER Oxygen Saturation 99% 04/03/2022 12:47 PM SPRAY GUN REPAIRER Inhaled Oxygen Concentration - - Weight 77.1 kg (170 lb) 04/03/2022 8:37 AM SPRAY GUN REPAIRER Height 182.9 cm (6') 04/03/2022 8:37 AM SPRAY GUN REPAIRER Body Mass Index 23.06 04/03/2022 8:37 AM SPRAY GUN REPAIRER Plan of Treatment Health Maintenance Due Date [...] this topic Medical Devices Implanted Type Area Driver Trainer Device Identifier Shelf Expiration Date Model / Serial / Lot Scr Alexander 4.0x50 Lng-Thrd - [id number] Implanted:Qty: 1 on 05/09/2021 by Bienvenido Sawant DPM at [facility] DEVICE Left: ANKLE [employer] S[employer] - Trauma 207.750 / 000 / 000 Scr Alexander 4.0x40 Lng-Thrd - [id number] Implanted:Qty: 1 on 05/09/2021 by Bienvenido Sawant DPM at [facility] DEVICE Left: AN[employer]LE [employer] - Trauma 207.740 / 000 / 000 Insurance [id number] [place] [id number] FULLY INSURED FULLY INSURED FULLY INSURED Advance Directives * Full Code (Latest Code Status on File) Date Activated Date Inactivated Comments 04/03/2022 8:37 AM 04/03/2022 3:16 PM * Full Code Date Activated Date Inactivated Comments 05/09/2021 8:17 AM 05/09/2021 1:33 PM Care Teams Banquet Server On Call Relationship Specialty Start Date End Date Clinician, Not Found, [place] [address] PCP - General 11/02/21
--- OUTSIDE RECORDS SUMMARY | 2024-10-06 01:03 | XMS_ITS | Clinical Summary ---
Author Organization [facility] Address [address] [place] [address] Care Team Providers Care Sports Broadcaster Name Role Phone [facility] Primary Care Pr ovider Allergies No known active allergies Medications fluconazole (DIFLUCAN) 150 mg tabletIndication s:Vaginal candidiasis Take 1 tablet every 3 days for total of 3 doses. 3 Tablet 04/11/2023 Active Active Problems Problem Noted Date Diagnosed Date Closed fracture of left distal fibula 05/04/2021 Overview (09/14/2021): Added automatically from request for surgery [id number] Resolved Problems Problem Noted Date Diagnosed Date Resolved Date No active medical problems 08/23/2011 0 12/10/2022 Encounters Date Type Department Care Team Description 07/23/2024 Orders Only [facility] Scanner 1 scan: (1-Ord) [facility], PELVIC TRANSVAGINAL, 07/23/2024 from Last 3 Months Immunizations Immunization Administration Dates Next Due DTaP 04/11/2008,06/01/2004 [id number] (Pediarix) 01/08/2004,0509/2003,2003,05/07 HIB PRP-OMP (PedvaxHIB) 06/01/2004,03/14/2004, HPV [...] on file Legal Sex Female 5:51 AM [employer] Gender Identity Not on file Sexual Orientation Not on file Obstetrics History Para Term AB IAB SAB Ectopic Multiple Livin g Live Births 0 0 0 0 0 0 0 0 0 0 0 Last Filed Vital Signs Vital Sign Reading Time Taken Comments Blood Pressure 104/66 04/10/2023 8:24 AM NCAA COMPLIANCE INTERNSHIP Pulse 76 04/10/2023 8:24 AM [employer] INTER[employer] Temperature 36.7 C (98.1 F) 12/10/2022 1:06 PM CDT Respiratory Rate 12 03/08/2022 4:13 PM [employer] Oxygen Saturation 98% 04/10/2023 8:24 AM [employer] Inhaled Oxygen Concentration - - Weight 72.6 kg (160 lb) 04/10/2023 8:24 AM [employer] Height 183 cm (6' 0.05) 04/10/2023 8:24 AM [employer]ANCE INTERNSHIP Body Mass Index 21.67 04/10/2023 8:24 AM [employer] Plan of Treatment Health Maintenance Due Date [...] CHLAMYDIA TRACH PROBE Routine 04/10/2023 9:36 AM [employer] INTERNS[employer]IP Dyspareunia in female ANTI HCV Routine 09/14/2021 11:34 AM CDT Need for hepatitis C screening test from Last 3 Months or Most Recently Relevant to Health Maintenance Results * SCAN-ULTRASOUND REPORT (07/23/2024 12:00 AM CDT) Anatomical Region Laterality Modality Other us Scanner OTHER Final Result * GC CHLAMYDIA TRACH PROBE (04/10/2023 9:36 AM [employer]) CHLAMYDIA PROBE Negative 7:32 PM [employer] [facility] N GONORRHOEAE PROBE Negative 04/10/2023 7:32 PM [employer] [facility] Other VAGINAL SWAB / Unknown Non-Blood / Unknown 04/10/2023 9:36 AM [employer] 04/10/2023 9:37 AM [employer] us Cecy BOYLE MICROBIOLOGY Final Resu lt [facility] [address] [place] [address], * ANTI HCV (09/14/2021 11:34 AM CDT) HEPATITIS C ANTIBODY Non-React ryan Non-React ryan 09/15/2021 10:44 AM CDT [facility] Comment:Antibodies to HCV no t detected; does not exclude the possibility of exposure to HCV. Blood BLOOD SPECIMEN / Unknown Venipuncture / Unknown 09/14/2021 11:34 AM CDT 09/14/2021 11:35 AM CDT us Mario Kern DO SEND OUTS Final Result [facility] [address] [place] [address], [place] from Last 3 Months or Most Recently Relevant to Health Maintenance Insurance [place] [id number] [place] [id number] [place] [id number] Care Teams Sports Broadcaster Relationship Specialty Start Date End Date Clinic, [facility] [address] [place] [address] PCP - General 05/10/24
== END 2024-10-05 17:15 | disposition home or self-care (01) ==
PROVIDERS: PCP Family Medicine; Visit Provider Obstetrics & Gynecology
DX: N94.9 Unspecified condition associated with female genital organs and menstrual cycle (principal); N83.201 Unspecified ovarian cyst, right side
CPT/HCPCS: 76830; 76856

== ENCOUNTER 2024-11-11 12:45 | Outpatient (CLI) | payer OTHER, SELFPAY ==
--- NOTE | 2024-11-11 13:00 | CRLHL7_ITS ---
For Patients: As a result of the Century Cures Act, medical imaging exams and procedure reports are released immediately into your electronic medical record. You may view this report before your referring provider. If you have questions, please contact your health care provider. OB ULTRASOUND LESS THAN 14 WEEKS, 11/11/2024 CLINICAL HISTORY: Vaginal bleeding. TECHNIQUE: Real time collado scale imaging of the fetus was performed. Transvaginal imaging performed. COMPARISON: 11/11/2024 FINDINGS: Imaging: Transvaginal. Right Ovary: 5.1 x 3.2 x 3.6 cm Left Ovary: 3.1 x 2.1 x 2.0 cm CL? IMPRESSION: 1. Intrauterine gestational sac is present containing a pole. The pole measures 5 weeks 5 days. Visualized motion is noted, although a distinct heart rate measurement was not able to be obtained. Follow-up in two weeks recommended. 2. Similar hypoechoic area within the right ovary which measures 2.7 cm. No internal vascularity is present. This may represent an endometrioma. 3. Collapsing corpus luteal cyst left ovary measures 1.8 cm. Vinny Us M.D. Diagnostic Radiologist [email or web address] Transcribed: 9:57 am DW/Dictated by: Vinny Us MD @ 11/14/2024 9:11:00 PM (Electronically Signed)
== END 2024-11-11 12:46 | disposition home or self-care (01) ==
LOC: US 12:46
PROVIDERS: PCP Family Medicine; Visit Provider Physician Assistant
DX: O20.9 Hemorrhage in early pregnancy, unspecified (principal); O34.81 Maternal care for other abnormalities of pelvic organs, first trimester; N83.12 Corpus luteum cyst of left ovary; Z3A.01 Less than 8 weeks gestation of pregnancy
CPT/HCPCS: 76817

== ENCOUNTER 2024-11-13 02:18 | Emergency (ER) | payer OTHER, SELFPAY ==
--- OUTSIDE RECORDS SUMMARY | 2024-11-13 02:20 | XMS_ITS | Clinical Summary ---
Author Organization [facility] Address [address] [place] [id number] Care Team Providers Care Success Coach Name Role Phone Clinic, [facility] Primary Care Pr ovider Allergies No known active allergies Medications fluconazole (DIFLUCAN) 150 mg tabletIndication s:Vaginal candidiasis Take 1 tablet every 3 days for total of 3 doses. 3 Tablet 04/11/2023 Active Active Problems Problem Noted Date Diagnosed Date Closed fracture of left distal fibula 05/04/2021 Overview (09/14/2021): Added automatically from request for surgery [id number] Resolved Problems Problem Noted Date Diagnosed Date Resolved Date No active medical problems 08/23/2011 0 12/10/2022 Encounters Date Type Department Care Team Description 10/05/2024 Orders Only [facility] Scanner 1 scan: (1-Ord) [place], PELVIC TA/TV, 10/05/2024 from Last 3 Months Immunizations Immunization Administration Dates Next Due DTaP 04/11/2008,06/01/2004 [id number] (Pediarix) 01/08/2004,08/13,2003,05/07 HIB PRP-OMP (PedvaxHIB) 06/01/2004,03/14/2004, HPV 9 (Gardasil [...] on file Legal Sex Female 5:51 AM GRAVITY PROSPECTING OPERATOR HELPER Gender Identity Not on file Sexual Orientation Not on file Obstetrics History Para Term AB IAB SAB Ectopic Multiple Livin g Live Births 0 0 0 0 0 0 0 0 0 0 0 Last Filed Vital Signs Vital Sign Reading Time Taken Comments Blood Pressure 104/66 04/10/2023 8:24 AM GRAVITY PROSPECTING OPERATOR HELPER Pulse 76 04/10/2023 8:24 AM GRAVITY PROSPECTING OPERATOR HELPER Temperature 36.7 C (98.1 F) 12/10/2022 1:06 PM CDT Respiratory Rate 12 03/08/2022 4:13 PM GRAVITY PROSPECTING OPERATOR HELPER Oxygen Saturation 98% 04/10/2023 8:24 AM GRAVITY PROSPECTING OPERATOR HELPER Inhaled Oxygen Concentration - - Weight 72.6 kg (160 lb) 04/10/2023 8:24 AM GRAVITY PROSPECTING OPERATOR HELPER Height 183 cm (6' 0.05) 04/10/2023 8:24 AM GRAVITY PROSPECTING OPERATOR HELPER Body Mass Index 21.67 04/10/2023 8:24 AM GRAVITY PROSPECTING OPERATOR HELPER Plan of Treatment Health Maintenance Due Date [...] 04/10/2023, 09/17/2021, Additional history exists Influenza Vaccine (#1) 2024 9, 04/11/2008, 02/16/2007, Additional history exists Tetanus booster [...] on patient's age to complete this topic Hepatitis C screening for age 18-79 Completed 09/14/2021 Procedures Procedure Name Priority Date/Time Associated Diagnosis Comments SCAN-ULTRASOUND REPORT 10/05/2024 12:00 AM CDT GC CHLAMYDIA TRACH PROBE Routine 04/10/2023 9:36 AM GRAVITY PROSPECTING OPERATOR HELPER Dyspareunia in female ANTI HCV Routine 09/14/2021 11:34 AM CDT Need for hepatitis C screening test from Last 3 Months or Most Recently Relevant to Health Maintenance Results * SCAN-ULTRASOUND REPORT (10/05/2024 12:00 AM CDT) Anatomical Region Laterality Modality Other us Scanner OTHER Final Result * GC CHLAMYDIA TRACH PROBE (04/10/2023 9:36 AM GRAVITY PROSPECTING OPERATOR HELPER) CHLAMYDIA PROBE Negative 7:32 PM GRAVITY PROSPECTING OPERATOR HELPER [facility] N GONORRHOEAE PROBE Negative 04/10/2023 7:32 PM GRAVITY PROSPECTING OPERATOR HELPER [facility] Other VAGINAL SWAB / Unknown Non-Blood / Unknown 04/10/2023 9:36 AM GRAVITY PROSPECTING OPERATOR HELPER 04/10/2023 9:37 AM GRAVITY PROSPECTING OPERATOR HELPER us Cecy BOYLE MICROBIOLOGY Final [facility]u lt [facility] [address] [place] [address], * ANTI HCV (09/14/2021 11:34 AM CDT) HEPATITIS C ANTIBODY Non-React ryan Non-React ryan 09/15/2021 10:44 AM CDT [facility] Comment:Antibodies to HCV no t detected; does not exclude the possibility of exposure to HCV. Blood BLOOD SPECIMEN / Unknown Venipuncture / Unknown 09/14/2021 11:34 AM CDT 09/14/2021 11:35 AM CDT Mario Kern DO SEND OUTS Final Result [facility] [address] [place] [address], [place] from Last 3 Months or Most Recently Relevant [place] [address] [place] [address] [place] [id number] Care Teams Success Coach Relationship Specialty Start Date End Date Clinic, [facility] [address] [place] [address] PCP - General 05/10/24
--- OUTSIDE RECORDS SUMMARY | 2024-11-13 02:20 | XMS_ITS | Clinical Summary ---
Author Organization [facility] Address [address] [address] Care Team Providers Care Arabic Teacher Name Role Phone Clinician, Not Found MD Primary Care Provider Un available Source Comments You are receiving this document as you are listed as the primary care provider,follow-up provider, or the patient has been referred to you for consultation.This is in compliance with the Medicare and[facility] EHR Incentive Program,which states Providers who transition their patient to another setting of careor provider of care or refers their patient to another provider of care shouldprovide summary care record for each transition of care or referral. [facility] [employer] Allergies No known active allergies Medications HYDROcodone-alberto taminophen (NORCO) 5-325 MG tabletIndicatio ns:Pain Take 1-2 Tablets by mouth every 6 hours as needed for Pain. Indications: Pain 10 Tablet 04/03/2022 Active Active Problems Problem Noted Date Diagnosed Date Mechanical complication due to implant Overview (02/05/2022): Added automatically from request for surgery [id number] Closed fracture of left distal fibula 05/04/2021 Overview (05/04/2021): Added automatically from request for surgery [id number] Social History Tobacco Use Types Packs/Day Years [...] Comments Blood Pressure 112/58 04/03/2022 12:47 PM WORD PROCESSING SUPERVISOR Pulse 82 04/03/2022 12:25 PM WORD PROCESSING SUPERVISOR Temperature 36.6 C (97.9 F) 04/03/2022 11:43 AM WORD PROCESSING SUPERVISOR Respiratory Rate 16 04/03/2022 12:47 PM WORD PROCESSING SUPERVISOR Oxygen Saturation 99% 04/03/2022 12:47 PM WORD PROCESSING SUPERVISOR Inhaled Oxygen Concentration - - Weight 77.1 kg (170 lb) 04/03/2022 8:37 AM WORD PROCESSING SUPERVISOR Height 182.9 cm (6') 04/03/2022 8:37 AM WORD PROCESSING SUPERVISOR Body Mass Index 23.06 04/03/2022 8:37 AM WORD PROCESSING SUPERVISOR Plan of Treatment Health Maintenance Due Date Last Done Comments Cervical Cancer Screening Due 2003 Chlamydia 2003 Hep C Screening (Preventive Services) 2003 MenB Immunization Discussion 2003 HPV Vaccine (2 - 3-dose series) 12/16/2018 11/18/2018 HIV Screening (Preventive Services) 2019 Adult Preventive Visit 2021 HepB Vaccine (1) 2022 COVID-19 Vaccine ( season) 2023 Influenza Vaccine (#1) 2024 9, 02/16/2009, 04/11/2008, Additional history exists DTaP/Tdap/Td Vaccine [...] this topic Medical Devices Implanted Type Area Signals Officer Device Identifier Shelf Expiration Date Model / Serial / Lot Scr Alexander 4.0x50 Lng-Thrd - [id number] Implanted:Qty: 1 on 05/09/2021 by Bienvenido Sawant DPM at [facility] DEVICE Left: [employer] - Trauma 207.750 / 000 / 000 Scr Alexander 4.0x40 Lng-Thrd - [id number] Implanted:Qty: 1 on 05/09/2021 by Bienvenido Sawant DPM at [facility] DEVICE Left: [employer] - Trauma 207.740 / 000 / 000 Insurance [address] [place] [id number] FULLY INSURED FULLY INSURED FULLY INSURED Advance Directives * Full Code (Latest Code Status on File) Date Activated Date Inactivated Comments 04/03/2022 8:37 AM 04/03/2022 3:16 PM * Full Code Date Activated Date Inactivated Comments 05/09/2021 8:17 AM 05/09/2021 1:33 PM Care Teams Arabic Teacher Relationship Specialty Start Date End Date Clinician, Not Found, [place] [address] PCP - General 11/02/21
[2024-11-13 02:24] VITALS: BP 147/88; PULSE 108; RESP 18; TEMP 36.8; O2SAT 100; BMI 21.7
--- NOTE | 2024-11-13 02:39 | CRLHL7_ITS ---
For Patients: As a result of the Century Cures Act, medical imaging exams and procedure reports are released immediately into your electronic medical record. You may view this report before your referring provider. If you have questions, please contact your health care provider. INDICATION: Vaginal bleeding COMPARISON: 11/11/2024, 07/23/2024 TECHNIQUE: Transvaginal: Lozada-scale and color Doppler ultrasound of the uterus and ovaries from a transvaginal approach. Transvaginal ultrasound of the pelvis was performed to better visualize the genitourinary organs, such as the ovaries and/or endometrium. FINDINGS: Reported last menstrual period: 09/17/2024. Estimated gestational age: 8 weeks 1 day The uterus is retroverted and measures 8 x 5 x 6 cm. No uterine masses. The endometrial stripe measures 1.9 cm in double thickness. The endometrium is heterogeneous and very hypervascular. No intrauterine gestational sac. No identifiable embryo. The cervix not well seen due to uterine position The right ovary measures 5.1 x 3.2 x 3.6 cm. There is a homogeneously hypoechoic 2.7 x 2.3 x 2.7 centimeter lesion. No internal blood flow and there is through transmission. Appearance suggests either a hemorrhagic cyst or an endometrioma. Similar appearance seen previously. There is also a smaller simple cyst. No solid mass. Normal color Doppler flow. The left ovary measures 3.1 x 2.1 x 2.0 cm. There is a small likely corpus luteum cyst that measures 1.4 x 1.6 by 1.6 cm. Normal color Doppler flow. No free fluid. IMPRESSION: 1. First trimester loss. Previously seen intrauterine gestational sac is no longer present. The endometrium is heterogeneous and hypervascular. Correlate with time since bleeding to assess for the possibility of retained products of conception versus recent loss. 2. Again seen is a 2.7 centimeter right ovarian lesion that may be a hemorrhagic cyst or an endometrioma. Dictated by Alicia James MD @ 11/13/2024 4:26:08 AM (Electronically Signed)
--- NOTE | 2024-11-13 02:58 | ED.PREGNANCY ---
HPI - General Time Seen by Provider: 02:58 Date Seen: 11/13/24 Chief complaint: Vaginal Bleeding Stated complaint: 6wks , vaginal bleeding Time Seen by Provider: 11/13/24 02:39 Source: patient and family Mode of arrival: ambulatory History of Present Illness HPI Narrative: Juani is a previously healthy currently ~ 6 weeks who presents the emergency department for evaluation of vaginal bleeding. Patient reports her last menstrual period was 09/17/2024. Patient states that she has noticed some light brown spotting for the past 4 days. Patient had her 1st ultrasound 2 days ago on 11/11/2024 which demonstrated single live IUP measures 2 weeks < clinical dates, heart motion visualized but too small to accurately measure beats per minute. Patient reports last night around 5:00 p.m. she developed some bright red blood. Patient reports initially it was light however 9:00 p.m. started with heavy bright red vaginal bleeding along with clots. Patient reports soaking pads/diaper in changing it multiple times in the past 6 hours. Patient denies any weakness, dizziness, chest pain, shortness of breath, nausea, vomiting, abdominal pain. No other complaints. Related Data Allergies Allergy/AdvReac Type Severity Reaction Status Date / Time No Known Drug Allergies Allergy Verified 11/13/24 02:28 Review of Systems Narrative: Past medical history, past surgical history, medications, allergies, family history, and social history were reviewed with the patient. No additional pertinent items. A medically appropriate review of systems was performed with pertinent positives and negatives noted in HPI, all other systems negative. [facility] Medical History (Updated 11/13/24 @ 04:41 by Julia Pascual MD) Fracture of fibula alone ?S82.409A - Unspecified fracture of shaft of unspecified fibula, initial encounter for closed fracture (ICD-10) Surgical History (Updated 12/10/23 @ 13:23 by Rachel Vila MD) Status post laparoscopic surgery (11/27/23) ?Z98.890 - Other specified postprocedural states (ICD-10) Closed fibular fracture ?S82.409A - Unspecified fracture of shaft of unspecified fibula, initial encounter for closed fracture (ICD-10) Family History Father High blood pressure Social History (Updated 11/11/24 @ 16:09 by Rut Roberson PA-C) Narrative: Engaged. Nonsmoker No alcohol use What is your current living situation?: I presently have a place to live Problems where you live: no known problems In the past 12 months, utilities in danger of being shut off: no In past 12 months, lack of transportation kept you from medical appts, meetings, work, or getting things needed for daily living: no In the past 12 mos, have been you worried that your food would run out before you had money to buy more?: never true In the past 12 mos, the food you bought just didn't last and you didn't have money to buy more?: never true Smoking Status: Never smoker Do you use any of these nicotine containing products: None How often do you have a drink containing alcohol: never How often do you have six or more drinks on one occasion: Never AUDIT-C Alcohol total score: 0 Non-prescribed substance use: denies use How often does anyone, including family, friends and others, physically hurt you: never How often does anyone, including family, friends and others, insult or talk down to you: never How often does anyone, including family, friends and others, threaten you with harm: never How often does anyone, including family, friends and others, scream or curse at you: never service: No Exam Narrative: Exam Narrative: General: Afebrile, in distress HEENT: Normocephalic, atraumatic, conjunctiva normal. MMM Neck: non-tender, supple Cardio: regular rate. regular rhythm Resp: Normal work of breathing, no respiratory distress, lungs clear bilaterally, no wheezing, rhonchi, rales Chest/Back: no visual signs of trauma, no midline tenderness, no CVA tenderness Abdomen: soft, non distension, no tenderness, no peritoneal signs Neuro: alert and fully oriented. CN II-XII grossly intact. Grossly normal strength and sensation in all extremities. MSK: no deformities. Normal range of motion Integumentary/Skin: no rash visualized, normal color Psych: normal affect, normal behavior Const: Vital Signs, click to edit/add: Vital Signs - 24 hr 11/13/24 02:24 Temperature 98.2 F Pulse Rate [Pulse Oximeter] 108 H Respiratory Rate 18 Blood Pressure [Ri ght Upper Arm] 147/88 H Pulse Oximetry 100 Oxygen Delivery Me thod Room Air Course Vital Signs Vital signs: Initial Vital Signs Temperature 98.2 F 11/13/24 02:24 Temperature Source Temporal Artery Scan 11/13/24 02:24 Pulse Rate 108 H 11/13/24 02:24 Pulse Rhythm Regular 11/13/24 02:24 Respiratory Rate 18 11/13/24 02:24 Blood Pressure 147/88 H 11/13/24 02:24 Blood Pressure Mean 107 H 11/13/24 02:24 Blood Pressure Position Sitting 11/13/24 02:24 Pulse Oximetry 100 11/13/24 02:24 Oxygen Delivery Method Room Air 11/13/24 02:24 Vital Signs Temperature 98.2 F 11/13/24 02:24 Pulse Rate 108 H 11/13/24 02:24 Respiratory Rate 18 11/13/24 02:24 Blood Pressure 147/88 H 11/13/24 02:24 Pulse Oximetry 100 11/13/24 02:24 Oxygen Delivery Method Room Air 11/13/24 02:24 Temperature 98.2 F 11/13/24 02:24 Pulse Rate 108 H 11/13/24 02:24 Respiratory Rate 18 11/13/24 02:24 Blood Pressure 147/88 H 11/13/24 02:24 Pulse Oximetry 100 11/13/24 02:24 Oxygen Delivery Method Room Air 11/13/24 02:24 MDM - OB/Uterine Contractions MDM Narrative Medical decision making narrative: Juani is a previously healthy currently ~ 6 weeks who presents the emergency department for evaluation of vaginal bleeding. Upon arrival patient is nontoxic appearing, afebrile, in distress. Patient hypertensive upon arrival 147/88, tachycardic with heart rate 108, oxygen 100% on room air. Differential diagnosis includes but is not limited to IUP versus spontaneous/threatened versus subchorionic hemorrhage versus normal vaginal bleeding in among others. I reviewed comprehensive labs Which remarkable for white blood cell count of 7.7, hemoglobin 13.3, no acute metabolic or electrolyte abnormality, no transaminitis, hCG 81090. I personally reviewed and interpreted pelvic ultrasound which demonstrates 1st trimester loss, previously seen intrauterine gestational sac is no longer present. I discussed results with patient. Recommend close outpatient follow-up with OBGYN, strict bleeding precautions discussed. Return precautions discussed. Patient and significant other understand agrees the plan. Lab Data Labs: Lab Results 11/13/24 Range/Units 03:02 WBC 7.71 (4.50-11.00) K/uL RBC 4.36 (4.00-5.20) m/uL Hgb 13.3 (12.0-16.0) gm/dL Hct 39.3 (33.0-51.0) % MCV 90 (80-100) fL MCH 31 (26-34) pg MCHC 34 (32-36) gm/dL RDW Coeff of Aj 12.0 (11.5-15.5) % Plt Count 273 (140-440) K/uL Neut % (Auto) 63.8 (42.0-72.0) % Lymph % (Auto) 26.8 (20-44) % [place] % (Auto) 8.0 (0.0-11.0) % Eos % (Auto) 1.0 (0.0-7.0) % Baso % (Auto) 0.3 (0.0-3.0) % Neut # (Auto) 4.91 (1.7-7.0) K/uL Lymph # (Auto) 2.07 (0.90-2.90) K/uL [place] # (Auto) 0.60 (0.00-0.90) K/UL Eos # (Auto) 0.08 (0.00-0.50) K/uL Baso # (Auto) 0.02 (0.00-0.30) K/uL Abs Immat Gran (auto) 0.01 (0.00-0.30) K/uL Imm/Tot Granulo (auto) 0.1 % Sodium 137 (135-149) mmol/L Potassium 4.2 (3.6-5.1) mmol/L Chloride 105 (96-114) mmol/L Carbon Dioxide 25 (20-32) mmol/L Anion Gap 7 (7-15) mEq/L BUN 19 (5-24) mg/dL Creatinine 0.7 (0.5-1.5) mg/dL Estimated Creat Clear 145.65 Estimated GFR 126 ml/min Glucose 101 (60-115) mg/dL Calcium 9.4 (8.4-10.6) mg/dL Total Bilirubin 0.3 (0.1-1.5) mg/dL AST 22 (12-35) U/L ALT 10 (4-35) U/L Alkaline Phosphatase 44 (40-150) U/L Total Protein 7.0 (6.0-8.3) g/dL Albumin 4.4 (3.3-5.0) g/dL HCG, Quant 19229.00 mIU/mL Blood Type A Positive Discharge Plan Discharge Clinical Impression: Vaginal bleeding during , Incomplete Patient Disposition: Home, Self-Care Condition: Stable Additional Instructions: Please follow-up with your OBGYN in the next 2-3 days for further evaluation and follow-up. Please alternate taking Tylenol or ibuprofen as needed for abdominal pain/cramping. Please continue to monitor bleeding. Return to the emergency department if he develops persistent heavy bleeding which were soaking 3 thick pad/diaper every 30 minutes, or return if any worsening symptoms. It was a pleasure taking care of you today. We hope you feel better soon. Follow Up/Referrals: Judy Aguilar MD [Primary Care Provider, Family Practice] Stand Alone Forms: [employer] Info Instructions
[2024-11-13 03:08] LABS: Hematocrit 39.3 % (33.0-51.0); Hemoglobin* 13.3 gm/dL (12.0-16.0); Immature Granulocytes Abs Auto 0.01 K/uL (0.00-0.30); Immature Granulocytes Pct Auto 0.1 %; Lymphocytes Absolute Auto 2.07 K/uL (0.90-2.90); Mean Corpuscular HGB Conc 34 gm/dL (32-36); Mean Corpuscular Hemoglobin 31 pg (26-34); Mean Corpuscular Volume 90 fL (80-100); RDW Coefficient of Variation % 12.0 % (11.5-15.5); Red Blood Count 4.36 m/uL (4.00-5.20); White Blood Count* 7.71 K/uL (4.50-11.00)
[2024-11-13 03:09] LABS: Slide Review Reflex No
[2024-11-13 03:25] LABS: Albumin* 4.4 g/dL (3.3-5.0); Chloride* 105 mmol/L (96-114); Potassium* 4.2 mmol/L (3.6-5.1); Sodium* 137 mmol/L (135-149)
[2024-11-13 03:28] LABS: Alanine Aminotransferase* 10 U/L (4-35); Alkaline Phosphatase* 44 U/L (40-150); Anion Gap 7 mEq/L (7-15); Aspartate Amino Transferase* 22 U/L (12-35); Bilirubin Total* 0.3 mg/dL (0.1-1.5); Blood Urea Nitrogen* 19 mg/dL (5-24); Carbon Dioxide* 25 mmol/L (20-32); Creatinine* 0.7 mg/dL (0.5-1.5); Est. Creatinine Clearance* 145.65; Estimated Glomerular Filt Rate 126 ml/min; Total Protein* 7.0 g/dL (6.0-8.3)
[2024-11-13 03:29] LABS: Calcium* 9.4 mg/dL (8.4-10.6); Glucose* 101 mg/dL (60-115)
[2024-11-13 03:46] LABS: HCG Quantitative* 12057.00 mIU/mL
[2024-11-13 04:50] VITALS: BP 135/74; PULSE 95; RESP 18; TEMP 36.8; O2SAT 100
[2024-11-13 04:51] VITALS: BP 135/74; PULSE 95; RESP 18; TEMP 36.8
== END 2024-11-13 04:51 | disposition home or self-care (01) ==
PROVIDERS: Emergency Provider Emergency Medicine; PCP Family Medicine
DX: O03.4 Incomplete spontaneous abortion without complication (principal)
CPT/HCPCS: 36415; 76817; 80053; 84702; 85025; 86900; 86901; 99284; 99285

== ENCOUNTER 2024-11-17 14:07 | Outpatient (CLI) | payer OTHER, SELFPAY | END 2024-11-17 14:08 | disposition home or self-care (01) | LOC: NFLDREF 14:08 | PROVIDERS: PCP Family Medicine; Visit Provider Registered Nurse | DX: O03.4 Incomplete spontaneous abortion without complication (principal) | CPT/HCPCS: 84702 ==

== ENCOUNTER 2024-11-24 16:25 | Outpatient (CLI) | payer OTHER, SELFPAY | END 2024-11-24 16:26 | disposition home or self-care (01) | LOC: NFLDREF 11-29 15:05 | PROVIDERS: PCP Family Medicine; Referring Provider Family Medicine; Visit Provider Obstetrics & Gynecology | DX: O03.4 Incomplete spontaneous abortion without complication (principal) | CPT/HCPCS: 84702 ==

== ENCOUNTER 2024-12-01 15:17 | Outpatient (CLI) | payer OTHER, SELFPAY | END 2024-12-01 15:18 | disposition home or self-care (01) | LOC: NFLDREF 12-06 19:15 | PROVIDERS: PCP Family Medicine; Referring Provider Family Medicine; Visit Provider Obstetrics & Gynecology | DX: O03.4 Incomplete spontaneous abortion without complication (principal) | CPT/HCPCS: 84702 ==

== ENCOUNTER 2024-12-09 10:31 | Outpatient (CLI) | payer OTHER, SELFPAY | END 2024-12-09 10:32 | disposition home or self-care (01) | LOC: NFLDREF 10:33 | PROVIDERS: PCP Family Medicine; Visit Provider Obstetrics & Gynecology | DX: O03.9 Complete or unspecified spontaneous abortion without complication (principal) | CPT/HCPCS: 84702 ==

== ENCOUNTER 2025-04-11 10:30 | Emergency (ER) | payer OTHER, SELFPAY ==
[2025-04-11 10:32] VITALS: BP 127/89; PULSE 71; RESP 18; TEMP 37.4; O2SAT 97; BMI 21.6
--- OUTSIDE RECORDS SUMMARY | 2025-04-11 10:33 | XMS_ITS | Clinical Summary ---
Author Organization [facility] Address [address] [place] [address] Care Team Providers Care Forestry Fire Aide Name Role Phone [facility], [facility] Primary Care Pr ovider Allergies No known active allergies Medications MedicationSigDispense QuantityRefillsLast FilledStart DateEnd DateStatus fluconazole (DIFLUCAN) 150 mg tablet Indications:Vaginal candidiasisTake 1 tablet every 3 days for total of 3 doses. 3 Tablet 3Active Active Problems ProblemNoted DateDiagnosed DateClosed fracture of left distal kbpgcp2005/04/2021 Overview (09/14/2021): Added automatically from request for surgery [id number] Resolved Problems ProblemNoted DateDiagnosed DateResolved DateNo active medical xxpngred03/11/2012 12/10/2022 Immunizations ImmunizationAdministration DatesNext MsxVYjV97/29/2008,06/01/20049122OFeI-IwlQ-FOR (Pediarix)01/08/2004,2003,2003,2003HIB PRP-OMP (PedvaxHIB) 06/01/2004,03/14/2004,2003HPV 9 (Gardasil 9)11/18/2018Hepatitis A (Peds) 11/20/2015,04/11/2008Inactivated Polio Typxpnz8104/11/2008Influenza A (H1N1), Live Vygvohscxw16/07/2010Influenza, IIV3 (Age 6-35 mos)03/02/2004Influenza, IIV3 (Age >=3 years)04/11/2008,02/16/2007Influenza,LAIV4 Live Intranasal (Flumist) 02/16/2009MENINGOCOCCAL VACCINE 2 VIAL 2MO-55YO (MENVEO)11/20/2015MMR106/12/2007, 03/02/2004Pneumococcal conj 7-Valent (Prevnar 7)06/01/2004,01/04/2004,2003 ,2003Tdap11/20/2015Varicella Cslloik3404/11/2008,03/02/2004 Family History Medical HistoryRelationNameCommentsOtherMothergestational diabetesRelationName StatusCommentsFatherAliveMotherAlive Social History Tobacco UseTypesPacks/DayYears UsedDateSmoking Tobacco: NeverSmokeless Tobacco: Never Tobacco Cessation:Counseling Given: Yes Comments:no passive smoke exposure Alcohol UseStandard Drinks/WeekCommentsNever0 (1 standard drink = 0.6 oz pure alcohol)PHQ-2AnswerDate RecordedPHQ-2 TOTAL TZBXF47806/11/2022Social Connections AnswerDate RecordedDo you often feel lonely or isolated from those around you?0 04/10/2023Financial Resource StrainAnswerDate RecordedDifficulty of Paying Living Nbrkitwy514/28/2023ifficulty of Paying Living ExpensesNot on file 04/10/2023Food InsecurityAnswerDate RecordedDo you worry your food will run out before you are able to buy more?Transportation NeedsAnswerDate RecordedDoes lack of transportation keep you from medical appointments?1 3Does lack of transportation keep you from work, meetings or getting things that you need?Housing StabilityAnswerDate RecordedWhat is your housing situation today?UtilitiesAnswerDate RecordedDo you have trouble paying for utilities (for example, heat, electricity, water, phone)?1 12/28/2023CommentsNoSex and Gender InformationValueDate RecordedSex Assigned at BirthNot on fileLegal LztEeflth45/14/2013 5:51 AM CSTGender Identity Not on fileSexual OrientationNot on file Obstetrics History GravidaParaTermPretermABIABSABEctopicMultipleLivingLive [id number] Last Filed Vital Signs Vital SignReadingTime TakenCommentsBlood Vxarcwjh447/6604/10/2023 8:24 AM SCRAP PICKER Jzkav553904/10/2023 8:24 AM WQWSpslicbmldt31.7 ??C (98.1 ??F)12/10/2022 1:06 PM CDTRespiratory Lmwg866805/08/2021 4:13 PM CSTOxygen Ifephrzgsn66%04/10/2023 8:24 AM CSTInhaled Oxygen Concentration--Cwnkpt39.6 kg (160 lb)04/10/2023 8:24 AM SCRAP PICKER Elbovi512 cm (6' 0.05)04/10/2023 8:24 AM CSTBody Mass Index21.6704/10/2023 8:24 AM SCRAP PICKER Plan of Treatment Health MaintenanceDue DateLast DoneCommentsHIV for age 15-6503/01/2018HPV series for age 9-45 (2 - 3-dose series)Pap test for age 21-65 4BMI (ht and wt on same day) for age 18+, 03/08/2022, 2Chlamydia for age 16-2413Depression screening for age 12+, 04/10/2023, 09/17/2021, Additional history existsCOVID-19 vaccine series ( - 2024- season)2024Influenza Vaccine (#1)/08/2008, 04/11/2008, 02/16/2007, Additional history existsTetanus zhhaqou49/11/2015Hepatitis B series for 19+Completed 01/08/2004, 2003, 2003, Additional history existsPneumococcal series for age 6-49Aged Out06/01/2004, 01/04/2004, 2003, Additional history existsNo longer eligible based on patient's age to complete this topicHepatitis C screening for age 18-29Eesraaqeu42/03/2022 Procedures Procedure NamePriorityDate/TimeAssociated DiagnosisCommentsGC CHLAMYDIA TRACH WBLIFVpfaxjq85/28/2023 9:36 AM SCRAP PICKER Dyspareunia in female ANTI SECJxfhyjl02/03/2022 11:34 AM CDT Need for hepatitis C screening test from Last 3 Months or Most Recently Relevant to Health Maintenance Results * GC CHLAMYDIA TRACH PROBE (04/10/2023 9:36 AM SCRAP PICKER)ComponentValueRef RangeTest MethodAnalysis TimePerformed AtPathologist SignatureCHLAMYDIA PROBENegative 04/10/2023 7:32 PM CSTCHO[facility]ENT[facility]EN[facility] LAB[facility]ATORYN GONORRHOEAE PROBENegative 04/10/2023 7:32 PM CSTCHOCTAW [facility]ALTH [facility]ENTERCENTRAL LABORATORYSpecimen (Source)Anatomical Location / LateralityCollection Method / VolumeCollection TimeReceived TimeOtherVAGINAL SWAB / UnknownNon-Blood / Xrhaeqn1504/10/2023 9:36 AM CST04/10/2023 9:37 AM SCRAP PICKER Narrative Authorizing ProviderResult TypeResult StatusJennbrice Downing PAMICROBIOLOGY Final ResultPerforming OrganizationAddressCity/State/ZIP CodePhone Number [facility] [address] [place] [address], * ANTI HCV (09/14/2021 11:34 AM CDT)ComponentValueRef RangeTest MethodAnalysis TimePerformed AtPathologist SignatureHEPATITIS C ANTIBODYNon-Reactive Non-Owexsdog82/04/2022 10:44 AM CDNESHOBA [facility] Comment:Antibodies to HCV not detected; does not exclude the possibility of exposure to HCV.Specimen (Source)Anatomical Location / LateralityCollection Method / VolumeCollection TimeReceived TimeBloodBLOOD SPECIMEN / Unknown Venipuncture / Wuwyudm5509/14/2021 11:34 AM CDT09/14/2021 11:35 AM CDT Narrative Authorizing ProviderResult TypeResult StatusAdei Shaqra DOSEND OUTSFinal Result Performing OrganizationAddressCity/State/ZIP CodePhone Number [facility] [address] [place] [address], from Last 3 Months or Most Recently Relevant to Health Maintenance Insurance [place] [id number] [address] [id number] [place] [address] Care Teams Team MemberRelationshipSpecialtyStart DateEnd [facility], [facility] [address] [place], [place] [phone] PCP - General05/10/24
--- OUTSIDE RECORDS SUMMARY | 2025-04-11 10:33 | XMS_ITS | Clinical Summary ---
Author Organization [facility] Address [address], [place] [address] Care Team Providers Care Nurse Assistant Name Role Phone Clinician, Not Found MD Primary Care Provider Un available Source Comments You are receiving this document as you are listed as the primary care provider,follow-up provider, or the patient has been referred to you for consultation.This is in compliance with the Medicare andD[facility] Centercaid EHR Incentive Program,which states Providers who transition their patient to another setting of careor provider of care or refers their patient to another provider of care shouldprovide summary care record for each transition of care or referral. [facility] Allergies No known active allergies Medications MedicationSigDispense QuantityRefillsLast FilledStart DateEnd DateStatus HYDROcodone-acetaminophen (NORCO) 5-325 MG tablet Indications:PainTake 1-2 Tablets by mouth every 6 hours as needed for Pain. Indications: Pain 10 Tablet 04/03/2022ctive Active Problems ProblemNoted DateDiagnosed DateMechanical complication due to vqsuipc1902/05/2022 Overview (02/05/2022): Added automatically from request for surgery [id number] Closed fracture of left distal drzxkx3005/04/2021 Overview (05/04/2021): Added automatically from request for surgery [id number] Social History Tobacco UseTypesPacks/DayYears UsedDateSmoking Tobacco: NeverSmokeless Tobacco: Never Tobacco Cessation:Counseling Given: Not Answered Alcohol UseStandard Drinks/WeekCommentsNot Currently0 (1 standard drink = 0.6 oz pure alcohol)CommentsNoSex and Gender InformationValueDate RecordedSex Assigned at BirthNot on fileLegal TmiDffrab89/10/2012 5:45 AM CDTGender Identity Not on fileSexual OrientationNot on file Last Filed Vital Signs Vital SignReadingTime TakenCommentsBlood Qcisncir324/5804/03/2022 12:47 PM [employer]ETING ASSIST[employer] Hxhrs737104/03/2022 12:25 PM SUHChlpgcjkmfw83.6 ??C (97.9 ??F)04/03/2022 11:43 AM CSTRespiratory Rqpg664806/04/2021 12:47 PM CSTOxygen Uiiyukkgaa30%04/03/2022 12:47 PM CSTInhaled Oxygen Concentration--Bdpbyp45.1 kg (170 lb)04/03/2022 8:37 AM MARKETING ASSIST[employer] Uppmqp590.9 cm (6')04/03/2022 8:37 AM CSTBody Mass Index23.0604/03/2022 8:37 AM MARKETING ASSIST[employer] Plan of Treatment Health MaintenanceDue DateLast DoneCommentsCervical Cancer Screening Due 2003 3454Coboesgsq2003Hep C Screening (Preventive Services)2003MenB Immunization Phxzzsnpan2003HPV Vaccine (2 - 3-dose series)12/16/2018 11/18/2018HIV Screening (Preventive Services)2019Adult Preventive Visit 2021HepB Vaccine (1)2022OVID-19 Vaccine (1 - season) 2024Influenza Vaccine (#1)511/08/2008, 02/16/2009, 04/11/2008, Additional history existsDTaP/Tdap/Td Vaccine (7 - Tdap)608/11/2015, 04/11/2008, 06/01/2004, Additional history existsZoster/Shingles Vaccine (1 of 2)2053Hib UgbwutvQmngxtzff27/18/2005, 03/14/2004, 2003Pneumococcal VaccineAged Out06/01/2004, 01/04/2004, 2003, Additional history existsNo longer eligible based on patient's age to complete this topicIPV (Polio) Vaccine Hzifmbeop74/29/2008, 01/08/2004, 2003, Additional history existsHepA NkqetcyLczpyvzkj94/08/2016, 04/11/2008MCV4 VaccineAged Out11/20/2015No longer eligible based on patient's age to complete this topic Medical Devices ImplantedTypeAreaManufacturerDevice IdentifierShelf Expiration DateModel / Serial / LotScr Alexander 4.0x50 Lng-Thrd - [id number] Implanted:Qty: 1 on 05/09/2021 [facility] [employer] - [id number] / 000 / 000Scr Alexander 4.0x40 Lng-Thrd - [id number] Implanted:Qty: 1 on 05/09/2021 by [facility]ien[facility] [employer] - [id number] / 000 / 000 Insurance * Guarantor: Ted BATISTA TypeRelation to PatientDate of BirthPhone Billing AddressPersonal/CpjbwmLlur2005 [address] [place] [address] MemberSubscriberPlan / Payer (Effective 2018-Present)Name:Juani Batista Relation to Subscriber:SelfName:Juani Batista Payer ID:[id number] ([facility]) Type:Commercial * Guarantor: Ted Batista TypeRelation to PatientDate of BirthPhone Billing AddressPersonal/QtmwamTndd[address] [place] [address] Advance Directives * Full Code (Latest Code Status on File) Date ActivatedDate SikhkluurpqKqfeclca45/21/2022 8:37 AM04/03/2022 3:16 PM * Full Code Date ActivatedDate InactivatedComments05/09/2021 8:17 AM05/09/2021 1:33 PM Care Teams Team MemberRelationshipSpecialtyStart DateEnd Date Clinician, Not Found, [place] [address] PCP - General11/02/21
--- NOTE | 2025-04-11 10:47 | CRLHL7_ITS ---
For Patients: As a result of the Century Cures Act, medical imaging exams and procedure reports are released immediately into your electronic medical record. You may view this report before your referring provider. If you have questions, please contact your health care provider. 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 Real-time sonographic images with spectral and color Doppler imaging of the ovaries were obtained. Comparison: Pelvic ultrasound 11/13/2024, 11/11/2024, 10/05/2024. Findings: Uterus: Size: 7.7 x 4.4 x 4.6 cm. Mass: No. Endometrium: Transvaginal imaging was performed to better evaluate the endometrium. Thickness: 12.1 mm. Mass or fluid collection: No. Right ovary: Size: 7.1 x 6.0 x 7.8 cm. Mass: Complex cystic lesion with diffuse internal echoes measures 6.3 x 5.0 x 5.4 cm, previously 2.7 x 2.3 x 2.7 cm on 11/13/2024. Blood flow: Normal arterial and venous blood flow. Left ovary: Size: 2.5 x 3.0 x 3.6 cm. Mass: Complex cyst with diffuse internal echoes measures 2.0 x 2.1 x 2.1 cm. Blood flow: Normal arterial and venous blood flow. Cul-de-sac and adnexa: Significant free Fluid: No. Small volume free fluid is present adjacent to the right ovary. Mass: No. Impression: 1. No evidence of ovarian torsion. 2. Complex right ovarian cyst measures up to 6.3 cm in size, increased compared to prior, and may reflect hemorrhagic cyst versus endometrioma. 3. Additional complex cyst within the left ovary measuring up to 2.1 cm may reflect additional hemorrhagic cyst versus endometrioma. Dictated by Crissy Quinonez MD @ 04/11/2025 12:07:13 PM (Electronically Signed)
--- NOTE | 2025-04-11 10:49 | ED.GENADULT ---
HPI - General Adult General Date Seen: 04/11/25 Chief complaint: Abdominal Pain Stated complaint: Abdominal pains Time Seen by Provider: 04/11/25 10:34 History of Present Illness HPI narrative: Patient is a 20-year-old here with her fiance for evaluation of left pelvic pain which she noted this morning. She refers to it as ?a torsion. She does have a history of ovarian cysts some of which have been large, has had 1 surgically removed. Denies other abdominal surgeries. No urinary symptoms, fevers, nausea vomiting diarrhea or constipation. She does say that she gets uterine cramping when she has to have a bowel movement. She notes that her last period was March 26, she had a positive test 2 days prior to that and then says she had a normal. On the . She believes she had a chemical . She tells me that she did take a test after that and it was negative. She called [facility] today and they advised her to come to the ER as there were no available appointments. She is not on any control, she and her fiance are trying to get . Related Data Home Medications ?Medication ?Instructions ?Recorded ?Confirmed No Known Home Medications 11/17/24 04/11/25 Allergies Allergy/AdvReac Type Severity Reaction Status Date / Time No Known Drug Allergies Allergy Verified 04/11/25 10:39 Review of Systems Status of ROS: Reports: 10 or more systems reviewed and unremarkable except as noted in History and below [facility] Medical History Adnexal cyst ?N94.9 - Unspecified condition associated with female genital organs and menstrual cycle (ICD-10) Fracture of fibula alone ?S82.409A - Unspecified fracture of shaft of unspecified fibula, initial encounter for closed fracture (ICD-10) Surgical History Status post laparoscopic surgery (11/27/23) ?Z98.890 - Other specified postprocedural states (ICD-10) Closed fibular fracture ?S82.409A - Unspecified fracture of shaft of unspecified fibula, initial encounter for closed fracture (ICD-10) Family History Father High blood pressure Social History Narrative: Engaged. Nonsmoker No alcohol use What is your current living situation?: I presently have a place to live Problems where you live: no known problems In the past 12 months, utilities in danger of being shut off: no In past 12 months, lack of transportation kept you from medical appts, meetings, work, or getting things needed for daily living: no In the past 12 mos, have been you worried that your food would run out before you had money to buy more?: never true In the past 12 mos, the food you bought just didn't last and you didn't have money to buy more?: never true Smoking Status: Never smoker Do you use any of these nicotine containing products: None How often do you have a drink containing alcohol: never How often do you have six or more drinks on one occasion: Never AUDIT-C Alcohol total score: 0 Non-prescribed substance use: denies use How often does anyone, including family, friends and others, physically hurt you: never How often does anyone, including family, friends and others, insult or talk down to you: never How often does anyone, including family, friends and others, threaten you with harm: never How often does anyone, including family, friends and others, scream or curse at you: never service: No Exam Narrative: Exam Narrative: Vital signs reviewed In general, an alert, nontoxic Head: Normocephalic, atraumatic. Eyes: Sclera clear. Pupils equal and reactive. ENT: Mucous membranes moist. Neck: Supple without adenopathy. Heart: Regular rate and rhythm without murmur. Lungs: Clear. No increased work of breathing, crackles or wheezes. Abdomen: Soft, nondistended. Mild pelvic tenderness on the left without rebound guarding or rigidity. Extremities: Well perfused, pulses intact. No significant edema. Neurologic: Alert, conversant. Speech fluent, face symmetric. Moves all extremities equally. Skin: Warm, dry well perfused. Affect: Normal. Const: Vital Signs, click to edit/add: Vital Signs - 24 hr 04/11/25 10:32 04/11/25 13:09 Temperature 99.3 F 98.6 F Pulse Rate [Pulse Oximeter] 71 71 Respiratory Rate 18 18 Blood Pressure [Ri t Upper Arm] 127/89 120/81 Pulse Oximetry 97 97 Oxygen Delivery Me thod Room Air Room Air Course Course ED Course: Pelvic ultrasound obtained to evaluate for ovarian cyst, torsion, tubo-ovarian abscess, fibroid, etcetera. This is read by Radiology as showing a 2 cm complex cyst on the left, a 6 cm complex cystic lesion on the right. Good blood flow bilaterally. Diagnostic considerations include hemorrhagic ovarian cyst versus endometrioma. Discussed this with OB Gyne who recommends close follow-up considering patient is actively trying to get . Labs are normal, reviewed in their entirety. test is negative. Findings discussed with patient and her fiance, recommend close outpatient follow-up with [facility]. Return any time for worsening such as fever, vomiting or severe uncontrolled pain. Vital Signs Vital signs: Initial Vital Signs Temperature 99.3 F 04/11/25 10:32 Temperature Source Temporal Artery Scan 04/11/25 10:32 Pulse Rate 71 04/11/25 10:32 Respiratory Rate 18 04/11/25 10:32 Blood Pressure 127/89 04/11/25 10:32 Blood Pressure Mean 101 04/11/25 10:32 Blood Pressure Position Sitting 04/11/25 10:32 Pulse Oximetry 97 04/11/25 10:32 Oxygen Delivery Method Room Air 04/11/25 10:32 Vital Signs Temperature 99.3 F 04/11/25 10:32 Pulse Rate 71 04/11/25 10:32 Respiratory Rate 18 04/11/25 10:32 Blood Pressure 127/89 04/11/25 10:32 Pulse Oximetry 97 04/11/25 10:32 Oxygen Delivery Method Room Air 04/11/25 10:32 Temperature 98.6 F 04/11/25 13:09 Pulse Rate 71 04/11/25 13:09 Respiratory Rate 18 04/11/25 13:09 Blood Pressure 120/81 04/11/25 13:09 Pulse Oximetry 97 04/11/25 13:09 Oxygen Delivery Method Room Air 04/11/25 13:09 Medical Decision Making Lab Data Lab results reviewed: Yes I reviewed the patient's lab results Labs: Lab Results 04/11/25 04/11/25 Range/Units 12:30 12:40 WBC 5.35 (4.50-11.00) K/uL RBC 4.74 (4.00-5.20) m/uL Hgb 13.9 (12.0-16.0) gm/dL Hct 41.6 (33.0-51.0) % MCV 88 (80-100) fL MCH 29 (26-34) pg MCHC 33 (32-36) gm/dL RDW Coeff of Aj 12.9 (11.5-15.5) % Plt Count 306 (140-440) K/uL Neut % (Auto) 53.8 (42.0-72.0) % Lymph % (Auto) 37.8 (20-44) % [place] % (Auto) 6.9 (0.0-11.0) % Eos % (Auto) 0.9 (0.0-7.0) % Baso % (Auto) 0.4 (0.0-3.0) % Neut # (Auto) 2.88 (1.7-7.0) K/uL Lymph # (Auto) 2.02 (0.90-2.90) K/uL [place] # (Auto) 0.40 (0.00-0.90) K/UL Eos # (Auto) 0.05 (0.00-0.50) K/uL Baso # (Auto) 0.02 (0.00-0.30) K/uL Abs Immat Gran (auto) 0.01 (0.00-0.30) K/uL Imm/Tot Granulo (auto) 0.2 % Lactate 0.6 (0.5-1.9) mmol/L C-Reactive Protein < 0.5 L (0.5-1.0) mg/dL Urine Color Yellow (Yellow) Urine Appearance Clear (Clear) Urine pH 8.5 (5.0-8.5) Ur Specific [place] 1.020 (1.000-1.030) Urine Protein Negative (Negative) Urine Glucose (UA) Negative (Negative) Urine Ketones Negative (Negative) Urine Blood Negative (Negative) Urine Nitrite Negative (Negative) Urine Bilirubin Negative (Negative) Urine Urobilinogen 0.2 (0.2-1.0) Ur Leukocyte Esterase Negative (Negative) Urine RBC 0-2 (0-2) Urine WBC 0-2 (0-5) Ur Squamous Epith Cells None (None-Few) Urine Bacteria None (None) Urine HCG, Qual Negative (Negative) Imaging Data Pelvic ultrasound: Attestation: I have reviewed the pertinent imaging results. Radiologist's impression: Patient: RODY BATISTA Facility: [facility] RIS Site . 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 Real-time sonographic images with spectral and color Doppler imaging of the ovaries were obtained. Comparison: Pelvic ultrasound 11/13/2024, 11/11/2024, 10/05/2024. Findings: Uterus: Size: 7.7 x 4.4 x 4.6 cm. Mass: No. Endometrium: Transvaginal imaging was performed to better evaluate the endometrium. Thickness: 12.1 mm. Mass or fluid collection: No. Right ovary: Size: 7.1 x 6.0 x 7.8 cm. Mass: Complex cystic lesion with diffuse internal echoes measures 6.3 x 5.0 x 5.4 cm, previously 2.7 x 2.3 x 2.7 cm on 11/13/2024. Blood flow: Normal arterial and venous blood flow. Left ovary: Size: 2.5 x 3.0 x 3.6 cm. Mass: Complex cyst with diffuse internal echoes measures 2.0 x 2.1 x 2.1 cm. Blood flow: Normal arterial and venous blood flow. Cul-de-sac and adnexa: Significant free Fluid: No. Small volume free fluid is present adjacent to the right ovary. Mass: No. Impression: 1. No evidence of ovarian torsion. 2. Complex right ovarian cyst measures up to 6.3 cm in size, increased compared to prior, and may reflect hemorrhagic cyst versus endometrioma. 3. Additional complex cyst within the left ovary measuring up to 2.1 cm may reflect additional hemorrhagic cyst versus endometrioma. Discharge Plan Discharge Clinical Impression: Pelvic pain, Ovarian cyst Patient Disposition: Home, Self-Care Condition: Stable Instructions: Ovarian Cyst (ED) Additional Instructions: Please call and make a follow-up appointment with [facility] in the next week or 2. [phone]. If you have new symptoms such as fever, severe uncontrolled pain, vomiting etcetera return to the ER at any time. Prescriptions: No Action No Known Home Medications Follow Up/Referrals: Judy Aguilar MD [Primary Care Provider, Family Practice] Stand Alone Forms: [employer] Info Instructions
[2025-04-11 12:39] LABS: Lactate Sepsis w/Reflex* 0.6 mmol/L (0.5-1.9)
[2025-04-11 12:43] LABS: Hematocrit* 41.6 % (33.0-51.0); Hemoglobin* 13.9 gm/dL (12.0-16.0); Immature Granulocytes Abs Auto 0.01 K/uL (0.00-0.30); Immature Granulocytes Pct Auto 0.2 %; Lymphocytes Absolute Auto 2.02 K/uL (0.90-2.90); Mean Corpuscular HGB Conc 33 gm/dL (32-36); Mean Corpuscular Hemoglobin 29 pg (26-34); Mean Corpuscular Volume 88 fL (80-100); RDW Coefficient of Variation % 12.9 % (11.5-15.5); Red Blood Count* 4.74 m/uL (4.00-5.20); White Blood Count* 5.35 K/uL (4.50-11.00)
[2025-04-11 12:45] LABS: Appearance Urine Clear (Clear)
[2025-04-11 12:48] LABS: Slide Review Reflex No
[2025-04-11 12:52] LABS: Ur HCG Qualitative* Negative (Negative)
[2025-04-11 13:09] VITALS: BP 120/81; PULSE 71; RESP 18; TEMP 37; O2SAT 97
== END 2025-04-11 13:15 | disposition home or self-care (01) ==
PROVIDERS: Emergency Provider Emergency Medicine; PCP Family Medicine
DX: R10.22 Pelvic and perineal pain left side (principal); N83.202 Unspecified ovarian cyst, left side; N83.201 Unspecified ovarian cyst, right side
CPT/HCPCS: 36415; 76830; 76856; 81001; 81025; 83605; 85025; 86140; 93976; 99284; 99285